=== PATIENT | male | born 1950 | race African-American/Black ===

== ENCOUNTER 2017-11-15 08:05 | Day surgery (SDC) | payer MEDICARE, MEDICAID ==
[~2017-11-15] VITALS: Ht 185.4 cm; Wt 117.5 kg
[~2017-11-15 08:05] MED LIST: AMLO10TA80 PO; BENA20TA3 PO; CLON0.2T PO; CLOP75TA33 PO; DICL75TA5 PO; FINA1TAB18 PO; FURO20TA4 PO; IBUP-2030 PO; METF10004 PO; OMEP20CA10 PO; TAMS-11 PO
[2017-11-15 09:29] LABS: HEMOGLOBIN 8.9 g/dL (14.0-18.0); MEAN CORPUSCULAR HEMOGLOBIN 28.7 pg (28.0-32.0); MEAN CORPUSCULAR VOLUME 87.1 fL (80.0-94.0); PLATELET 265 x1000/uL (130-400); RED CELL DISTRIBUTION WIDTH 16.5 % (11.6-14.6)
[2017-11-15 09:36] LABS: CHLORIDE 109 mEq/L (98-107)
[2017-11-15 09:38] LABS: INR 1.1; PARTIAL THROMBOPLASTIN TIME 24.7 sec (23.4-31.0)
[2017-11-15] MEDS ORDERED: FENTANYL CITRATE/PF 50MCG/ML 2ML VIAL ONE (11:26)
[2017-11-15] MEDS ORDERED: MIDAZOLAM HCL 2 MG/2 ML VIAL ONE (11:26)
== END 2017-11-15 14:00 | disposition home or self-care (01) ==
LOC: CCL 08:05
PROVIDERS: ATTEND Internal Medicine Clinical Cardiac Electrophysiology
DX: R42 Dizziness and giddiness (principal); Z53.9 Procedure and treatment not carried out, unspecified reason; E78.5 Hyperlipidemia, unspecified; I11.0 Hypertensive heart disease with heart failure; I25.10 Atherosclerotic heart disease of native coronary artery without angina pectoris; N40.0 Benign prostatic hyperplasia without lower urinary tract symptoms; M19.90 Unspecified osteoarthritis, unspecified site; E66.9 Obesity, unspecified; Z68.33 Body mass index [BMI] 33.0-33.9, adult; Z87.891 Personal history of nicotine dependence; Z79.899 Other long term (current) drug therapy; Z79.01 Long term (current) use of anticoagulants; Z79.1 Long term (current) use of non-steroidal anti-inflammatories (NSAID)
CPT/HCPCS: 36415; 80048; 85027; 85610; 85730; 93005; C1893; J2250; J3010; J7030

== ENCOUNTER → 2017-11-19 | Day surgery (SDC) | payer MEDICARE, MEDICAID ==
[~2017-11-19] VITALS: Ht 185.4 cm; Wt 117.5 kg
[~2017-11-19] MED LIST changes: +FENTANYL CITRATE/PF 50MCG/ML 2ML VIAL ONE; +HEPARIN 1,000 UNITS PREMIX 0 ML IV ONE; +LIDOCAINE HCL/PF 1% 10 MG/ML 5ML VIAL ONE; +MIDAZOLAM HCL 2 MG/2 ML VIAL ONE
== END | disposition home or self-care (01) ==
LOC: CCL 05:33
PROVIDERS: ATTEND Internal Medicine Clinical Cardiac Electrophysiology
DX: I45.3 Trifascicular block (principal); I25.10 Atherosclerotic heart disease of native coronary artery without angina pectoris; N40.0 Benign prostatic hyperplasia without lower urinary tract symptoms; E66.9 Obesity, unspecified; Z68.33 Body mass index [BMI] 33.0-33.9, adult; E78.5 Hyperlipidemia, unspecified; I11.0 Hypertensive heart disease with heart failure; I50.9 Heart failure, unspecified; E11.9 Type 2 diabetes mellitus without complications; D64.9 Anemia, unspecified; I69.359 Hemiplegia and hemiparesis following cerebral infarction affecting unspecified side; F32.9 Major depressive disorder, single episode, unspecified; K86.1 Other chronic pancreatitis; K74.69 Other cirrhosis of liver; M19.90 Unspecified osteoarthritis, unspecified site; Z79.01 Long term (current) use of anticoagulants; Z79.1 Long term (current) use of non-steroidal anti-inflammatories (NSAID); Z79.899 Other long term (current) drug therapy; Z87.891 Personal history of nicotine dependence; Z53.9 Procedure and treatment not carried out, unspecified reason
CPT/HCPCS: 82962; 93005; J1644; J2250; J3010; J3490

== ENCOUNTER 2018-02-08 10:07 | Inpatient (IN) | payer MEDICARE, MEDICAID ==
[~2018-02-08] VITALS: Ht 186.7 cm; Wt 115.7 kg
[~2018-02-08 10:07] MED LIST changes: +BENA20TA10 PO; -BENA20TA3 PO; -CLOP75TA33 PO; -DICL75TA5 PO; -FENTANYL CITRATE/PF 50MCG/ML 2ML VIAL ONE; -HEPARIN 1,000 UNITS PREMIX 0 ML IV ONE; -IBUP-2030 PO; -LIDOCAINE HCL/PF 1% 10 MG/ML 5ML VIAL ONE; -MIDAZOLAM HCL 2 MG/2 ML VIAL ONE
[2018-02-08 11:36] LABS: BASOPHILS % 0.5 % (0.0-2.0); EOSINOPHILS % 1.5 % (0.0-5.0); HEMATOCRIT. 33.8 % (42.0-52.0); HEMOGLOBIN. 11.1 g/dL (14.0-18.0); LYMPHOCYTES % 22.8 % (20.0-50.0); MEAN CORPUSCULAR HEMOGLOBIN 29.1 pg (28.0-32.0); MEAN PLATELET VOLUME 7.9 fl (7.4-10.4); MONOCYTES % 10.7 % (2.0-8.0); NEUTROPHILS % 64.5 % (40.0-76.0); PLATELET 265 x1000/uL (130-400); RED CELL DISTRIBUTION WIDTH 16.4 % (11.6-14.6)
[2018-02-08 11:37] LABS: CHLORIDE 107 mEq/L (98-107)
[2018-02-08 11:40] LABS: PROTHROMBIN TIME 10.4 sec (9.1-11.1)
[2018-02-08 11:42] LABS: AMMONIA 31 uMol/L (<32)
[2018-02-08 11:46] LABS: ETHANOL BLOOD < 10 mg/dL
[2018-02-08 11:49] LABS: CREATINE KINASE 69 IU/L (39-308)
[2018-02-08] MEDS ORDERED: CLOPIDOGREL 75MG TABLET PO ONE (15:00)
[2018-02-08 18:31] VITALS: BP 143/65
[2018-02-08 20:00] VITALS: BP 166/86
[2018-02-08] MEDS ORDERED: CLONIDINE 0.2MG TABLET PO PRN (23:15)
[2018-02-08] MEDS ORDERED: ACETAMINOPHEN 325MG TABLET PO PRN (23:15)
[2018-02-09] VITALS: BP 161/72
[2018-02-09 03:41] LABS: CLARITY URINE CLEAR (CLEAR); COLOR URINE YELLOW (YELLOW); KETONES URINE NEGATIVE (NEGATIVE); LEUKOCYTE ESTERASE URINE NEGATIVE (NEGATIVE); NITRITE URINE NEGATIVE (NEGATIVE); OCCULT BLOOD URINE NEGATIVE (NEGATIVE); PROTEIN URINE 1+ (NEGATIVE); SPECIFIC GRAVITY URINE 1.011 (1.005-1.030); UROBILINOGEN URINE 0.2 E.U./dL (0.2-1.0)
[2018-02-09 04:00] VITALS: BP 161/72
[2018-02-09 04:31] LABS: *AMPHETAMINES SCREEN URINE NEGATIVE (NEGATIVE); *BARBITURATES SCREEN URINE NEGATIVE (NEGATIVE); *BENZODIAZEPINES SCREEN URINE NEGATIVE (NEGATIVE); *COCAINE SCREEN URINE NEGATIVE (NEGATIVE)
[2018-02-09 04:32] LABS: CANNABINOID URINE SCREEN NEGATIVE (NEGATIVE); METHADONE URINE SCREEN NEGATIVE (NEGATIVE); OPIATES URINE SCREEN NEGATIVE (NEGATIVE); PHENCYCLIDINE URINE SCREEN NEGATIVE (NEGATIVE)
[2018-02-09 05:47] LABS: BASOPHILS % 0.3 % (0.0-2.0); EOSINOPHILS % 1.6 % (0.0-5.0); HEMATOCRIT. 36.1 % (42.0-52.0); HEMOGLOBIN. 11.7 g/dL (14.0-18.0); LYMPHOCYTES % 25.7 % (20.0-50.0); MEAN CORPUSCULAR HEMOGLOBIN 28.6 pg (28.0-32.0); MEAN CORPUSCULAR VOLUME 88.4 fL (80.0-94.0); MEAN PLATELET VOLUME 7.9 fl (7.4-10.4); MONOCYTES % 10.1 % (2.0-8.0); NEUTROPHILS % 62.3 % (40.0-76.0); PLATELET 251 x1000/uL (130-400); RED BLOOD CELL COUNT 4.09 mill/uL (4.7-6.1); RED CELL DISTRIBUTION WIDTH 16.5 % (11.6-14.6)
[2018-02-09] MEDS: OMEPRAZOLE 20MG CAPSULE EXTENDED RELEASE PO SCH (06:35)
[2018-02-09] MEDS: BLOOD SUGAR DIAGNOSTIC STRIP TEST SCH ×4 (06:38→20:49)
[2018-02-09 06:39] LABS: CHLORIDE 105 mEq/L (98-107)
[2018-02-09] MEDS: INSULIN LISPRO 100 UNITS/ML SUBCUT SCH ×4 (06:39→20:57)
[2018-02-09 06:55] LABS: PHOSPHORUS 3.4 mg/dL (2.5-4.9)
[2018-02-09 06:56] LABS: LDL CHOLESTEROL 107 mg/dL (5-100)
[2018-02-09 06:58] LABS: HDL CHOLESTEROL 36 mg/dL (40-59)
[2018-02-09] MEDS ORDERED: MEDICATION NOT ON FORMULARY EA (Metformin Hcl 1 TAB) PO SCH (07:15)
[2018-02-09 08:00] VITALS: BP 149/69
[2018-02-09] MEDS: FINASTERIDE 5MG TABLET PO SCH (08:50)
[2018-02-09] MEDS: METFORMIN HCL 500MG TABLET PO SCH ×2 (08:51→17:15)
[2018-02-09] MEDS: TAMSULOSIN HCL 0.4MG SR CAPSULE PO SCH (08:51)
[2018-02-09] MEDS: FUROSEMIDE 20MG TABLET PO SCH (08:52)
[2018-02-09] MEDS: BENAZEPRIL 10MG TABLET PO SCH (08:52)
[2018-02-09] MEDS: ENOXAPARIN 30MG/0.3ML SYR SUBCUT SCH ×2 (08:52→20:49)
[2018-02-09] MEDS: CLONIDINE 0.2MG TABLET PO SCH (08:53)
[2018-02-09] MEDS ORDERED: FINASTERIDE PO SCH (09:00)
[2018-02-09] MEDS ORDERED: MEDICATION NOT ON FORMULARY EA (Benazepril Hcl 20 MG) PO SCH (09:00)
[2018-02-09] MEDS ORDERED: MEDICATION NOT ON FORMULARY EA (Clonidine Hcl 1 TAB) PO SCH (09:00)
[2018-02-09] MEDS ORDERED: MEDICATION NOT ON FORMULARY EA (Furosemide 1 TAB) PO SCH (09:00)
[2018-02-09 10:31] LABS: VITAMIN B12 SERUM 559 pg/mL (211-911)
[2018-02-09 11:11] LABS: FOLIC ACID (FOLATE) SERUM > 20.00 ng/mL (>5.38)
[2018-02-09 12:00] VITALS: BP 143/82
[2018-02-09] MEDS: AMLODIPINE 10MG TABLET PO SCH (12:54)
[2018-02-09 14:38] LABS: T4 FREE 0.88 ng/dL (0.76-1.46)
[2018-02-09 16:00] VITALS: BP 129/62
[2018-02-09 20:00] VITALS: BP 135/65
[2018-02-10] VITALS: BP 139/71
[2018-02-10 04:00] VITALS: BP 136/68
[2018-02-10] MEDS: METFORMIN HCL 500MG TABLET PO SCH ×2 (06:39→17:30)
[2018-02-10] MEDS: OMEPRAZOLE 20MG CAPSULE EXTENDED RELEASE PO SCH (06:39)
[2018-02-10] MEDS: BLOOD SUGAR DIAGNOSTIC STRIP TEST SCH ×4 (06:40→20:36)
[2018-02-10] MEDS: INSULIN LISPRO 100 UNITS/ML SUBCUT SCH ×4 (06:40→20:36)
[2018-02-10 08:00] VITALS: BP 141/63
[2018-02-10] MEDS: CLOPIDOGREL 75MG TABLET PO SCH (09:11)
[2018-02-10] MEDS: FUROSEMIDE 20MG TABLET PO SCH (09:11)
[2018-02-10] MEDS: CLONIDINE 0.2MG TABLET PO SCH (09:12)
[2018-02-10] MEDS: FINASTERIDE 5MG TABLET PO SCH (09:12)
[2018-02-10] MEDS: TAMSULOSIN HCL 0.4MG SR CAPSULE PO SCH (09:12)
[2018-02-10] MEDS: AMLODIPINE 10MG TABLET PO SCH (09:13)
[2018-02-10] MEDS: BENAZEPRIL 10MG TABLET PO SCH (09:13)
[2018-02-10] MEDS: ENOXAPARIN 30MG/0.3ML SYR SUBCUT SCH ×2 (09:14→20:37)
[2018-02-10 12:00] VITALS: BP 133/81
[2018-02-10] MEDS ORDERED: SODIUM BICARBONATE 4% (2.4MEQ) 5ML VIAL IV ONE (13:19)
[2018-02-10] MEDS ORDERED: LIDOCAINE HCL 1% 20ML VIAL (Pyxis) INJ ONE (13:20)
[2018-02-10] MEDS ORDERED: IOHEXOL-350 100 ML BOTTLE ONE (15:18)
[2018-02-10 16:00] VITALS: BP 146/89
[2018-02-10 20:00] VITALS: BP 123/68
[2018-02-11] VITALS: BP 137/63
[2018-02-11 04:00] VITALS: BP 123/57
[2018-02-11] MEDS: OMEPRAZOLE 20MG CAPSULE EXTENDED RELEASE PO SCH (06:37)
[2018-02-11] MEDS: METFORMIN HCL 500MG TABLET PO SCH ×2 (06:37→18:21)
[2018-02-11] MEDS: INSULIN LISPRO 100 UNITS/ML SUBCUT SCH ×3 (06:38→17:15)
[2018-02-11] MEDS: BLOOD SUGAR DIAGNOSTIC STRIP TEST SCH ×3 (06:38→17:42)
[2018-02-11 08:00] VITALS: BP 164/80
[2018-02-11] MEDS: FINASTERIDE 5MG TABLET PO SCH (09:20)
[2018-02-11] MEDS: CLOPIDOGREL 75MG TABLET PO SCH (09:20)
[2018-02-11] MEDS: FUROSEMIDE 20MG TABLET PO SCH (09:21)
[2018-02-11] MEDS: AMLODIPINE 10MG TABLET PO SCH (09:22)
[2018-02-11] MEDS: TAMSULOSIN HCL 0.4MG SR CAPSULE PO SCH (09:22)
[2018-02-11] MEDS: CLONIDINE 0.2MG TABLET PO SCH (09:22)
[2018-02-11] MEDS: BENAZEPRIL 10MG TABLET PO SCH (09:23)
[2018-02-11] MEDS: ENOXAPARIN 30MG/0.3ML SYR SUBCUT SCH (09:24)
[2018-02-11] MEDS ORDERED: LACTOBACILLUS GG CAPSULE PO SCH (09:45)
[2018-02-11 12:00] VITALS: BP 152/86
[2018-02-11 16:00] VITALS: BP 154/89
[2018-02-11 18:33] VITALS: BP 154/89
[2018-02-11] MEDS ORDERED: ATORVASTATIN CALCIUM 20MG TABLET PO SCH (21:00)
== END 2018-02-11 19:06 | disposition home or self-care (01) | DRG 64 ==
LOC: ER 10:16 → 5WST 15:11 → EDBEDREQ 15:14 → ENRESERV 15:46 → 5WST 02-11 09:13
PROVIDERS: ADMIT Internal Medicine; ATTEND Internal Medicine
PROC: 02HV33Z Insertion of Infusion Device into Superior Vena Cava, Percutaneous Approach (ICD-10-PCS; principal; 2018-02-10)
PROC: B5181ZA Fluoroscopy of Superior Vena Cava using Low Osmolar Contrast, Guidance (ICD-10-PCS; 2018-02-10)
PROC: B548ZZA Ultrasonography of Superior Vena Cava, Guidance (ICD-10-PCS; 2018-02-10)
DX: I63.231 Cerebral infarction due to unspecified occlusion or stenosis of right carotid arteries (principal); K57.31 Diverticulosis of large intestine without perforation or abscess with bleeding; I69.351 Hemiplegia and hemiparesis following cerebral infarction affecting right dominant side; K86.1 Other chronic pancreatitis; I10 Essential (primary) hypertension; E66.9 Obesity, unspecified; M19.90 Unspecified osteoarthritis, unspecified site; R26.9 Unspecified abnormalities of gait and mobility; R47.1 Dysarthria and anarthria; D64.9 Anemia, unspecified; E11.9 Type 2 diabetes mellitus without complications; I25.10 Atherosclerotic heart disease of native coronary artery without angina pectoris; B19.20 Unspecified viral hepatitis C without hepatic coma; K57.90 Diverticulosis of intestine, part unspecified, without perforation or abscess without bleeding; N40.0 Benign prostatic hyperplasia without lower urinary tract symptoms; E78.00 Pure hypercholesterolemia, unspecified; Z79.02 Long term (current) use of antithrombotics/antiplatelets; Z79.82 Long term (current) use of aspirin; Z82.3 Family history of stroke; Z95.0 Presence of cardiac pacemaker; Z79.84 Long term (current) use of oral hypoglycemic drugs; Z79.899 Other long term (current) drug therapy; Z68.33 Body mass index [BMI] 33.0-33.9, adult
CPT/HCPCS: 36415; 36569; 70450; 70496; 70498; 71045; 76937; 77001; 80048; 80053; 80061; 80305; 81003; 82140; 82270; 82550; 82607; 82746; 82962; 83036; 83735; 84100; 84439; 84443; 84481; 84484; 85025; 85610; 87015; 87045; 87427; 87449; 87493; 92523; 93005; 93306; 97162; 97166; 99285; C1725; G0482; J1650; J1815; J3490; Q9967

== ENCOUNTER 2018-04-22 15:44 | Emergency (ER) | payer MEDICARE, MEDICAID ==
[~2018-04-22] VITALS: Ht 185.4 cm; Wt 113.0 kg
[~2018-04-22 15:44] MED LIST changes: +METF-416 PO; -METF10004 PO
[2018-04-22 18:13] LABS: BASOPHILS % 0.6 % (0.0-2.0); EOSINOPHILS % 2.1 % (0.0-5.0); HEMATOCRIT. 40.8 % (42.0-52.0); HEMOGLOBIN. 12.8 g/dL (14.0-18.0); LYMPHOCYTES % 32.8 % (20.0-50.0); MEAN CORPUSCULAR HEMOGLOBIN 26.3 pg (28.0-32.0); MEAN CORPUSCULAR VOLUME 83.8 fL (80.0-94.0); MEAN PLATELET VOLUME 8.1 fl (7.4-10.4); NEUTROPHILS % 54.5 % (40.0-76.0); PLATELET 242 x1000/uL (130-400); RED BLOOD CELL COUNT 4.87 mill/uL (4.7-6.1); RED CELL DISTRIBUTION WIDTH 15.7 % (11.6-14.6)
[2018-04-22 18:19] LABS: CHLORIDE 107 mEq/L (98-107)
[2018-04-22 18:29] LABS: INR 1.1; PROTHROMBIN TIME 10.9 sec (9.1-11.1)
[2018-04-22] MEDS ORDERED: METOCLOPRAMIDE HCL 10MG/2ML VIAL IV ONE (20:00)
[2018-04-22] MEDS ORDERED: DIPHENHYDRAMINE 50MG/ML VIAL IV ONE (20:00)
[2018-04-22] MEDS ORDERED: KETOROLAC 15MG/ML VIAL IV ONE (20:00)
[2018-04-22] MEDS ORDERED: SODIUM CHLORIDE 0.9% 500 ML IV ONE (20:00)
[2018-04-22 20:03] LABS: CLARITY URINE CLEAR (CLEAR); COLOR URINE YELLOW (YELLOW); KETONES URINE NEGATIVE (NEGATIVE); LEUKOCYTE ESTERASE URINE NEGATIVE (NEGATIVE); NITRITE URINE NEGATIVE (NEGATIVE); OCCULT BLOOD URINE NEGATIVE (NEGATIVE); PH URINE 6.5 (4.5-8.0); PROTEIN URINE 2+ (NEGATIVE); UROBILINOGEN URINE 0.2 E.U./dL (0.2-1.0)
[2018-04-22 20:58] VITALS: BP 148/90
== END 2018-04-22 21:01 | disposition home or self-care (01) ==
LOC: ER 15:44
DX: R51 Headache (principal); D64.9 Anemia, unspecified; Z86.73 Personal history of transient ischemic attack (TIA), and cerebral infarction without residual deficits; R03.0 Elevated blood-pressure reading, without diagnosis of hypertension; R42 Dizziness and giddiness; E11.9 Type 2 diabetes mellitus without complications; I10 Essential (primary) hypertension; I25.10 Atherosclerotic heart disease of native coronary artery without angina pectoris; Z95.0 Presence of cardiac pacemaker; Z79.899 Other long term (current) drug therapy
CPT/HCPCS: 36415; 70450; 71045; 80053; 81003; 83880; 84484; 85025; 85610; 93005; 96374; 96375; 99284; J1885; J2765; J7040

== ENCOUNTER 2018-07-03 09:43 | Inpatient (IN) | payer MEDICARE, MEDICAID ==
[~2018-07-03] VITALS: Ht 185.4 cm; Wt 111.6 kg
[2018-07-03] MEDS ORDERED: NITROGLYCERIN OINT 1GM/INCH UDPKT TD ONE (10:45)
[2018-07-03 11:18] LABS: CLARITY URINE CLEAR (CLEAR); COLOR URINE YELLOW (YELLOW); KETONES URINE NEGATIVE (NEGATIVE); LEUKOCYTE ESTERASE URINE NEGATIVE (NEGATIVE); NITRITE URINE NEGATIVE (NEGATIVE); OCCULT BLOOD URINE NEGATIVE (NEGATIVE); PH URINE 6.5 (4.5-8.0); PROTEIN URINE 3+ (NEGATIVE); SPECIFIC GRAVITY URINE 1.022 (1.005-1.030)
[2018-07-03 11:19] LABS: BASOPHILS % 0.3 % (0.0-2.0); HEMATOCRIT. 39.2 % (42.0-52.0); HEMOGLOBIN. 12.9 g/dL (14.0-18.0); LYMPHOCYTES % 24.9 % (20.0-50.0); MEAN CORPUSCULAR HEMOGLOBIN 27.4 pg (28.0-32.0); MEAN CORPUSCULAR VOLUME 83.4 fL (80.0-94.0); MONOCYTES % 11.2 % (2.0-8.0); NEUTROPHILS % 61.6 % (40.0-76.0); PLATELET 227 x1000/uL (130-400); RED CELL DISTRIBUTION WIDTH 17.9 % (11.6-14.6)
[2018-07-03 11:23] LABS: CHLORIDE 108 mEq/L (98-107)
[2018-07-03 11:24] LABS: INR 1.1; PROTHROMBIN TIME 10.6 sec (9.1-11.1)
[2018-07-04] VITALS (7 sets, daily range): BP systolic 140–174; BP diastolic 72–92
[2018-07-04] MEDS ORDERED: DEXTROSE 50% WATER 50ML SYRINGE IV PRN (01:45)
[2018-07-04] MEDS ORDERED: CLONIDINE 0.2MG TABLET PO SCH (02:00)
[2018-07-04] MEDS ORDERED: MEDICATION NOT ON FORMULARY EA (Clonidine Hcl 1 TAB) PO SCH (02:00)
[2018-07-04] MEDS ORDERED: NAPROXEN 250MG TABLET PO PRN (02:15)
[2018-07-04] MEDS: CLONIDINE 0.2MG TABLET PO SCH (03:00)
[2018-07-04] MEDS: OMEPRAZOLE 20MG CAPSULE EXTENDED RELEASE PO SCH (06:01)
[2018-07-04] MEDS: BLOOD SUGAR DIAGNOSTIC STRIP TEST SCH ×4 (06:01→21:15)
[2018-07-04] MEDS: INSULIN LISPRO 100 UNITS/ML SUBCUT SCH ×4 (06:22→21:00)
[2018-07-04] MEDS ORDERED: MEDICATION NOT ON FORMULARY EA (Metformin Hcl 1 TAB) PO SCH (07:15)
[2018-07-04] MEDS: METFORMIN HCL 500MG TABLET PO SCH ×3 (07:15→17:44)
[2018-07-04] MEDS: FINASTERIDE 5MG TABLET PO SCH (08:36)
[2018-07-04] MEDS: BENAZEPRIL 10MG TABLET PO SCH (08:36)
[2018-07-04] MEDS: TAMSULOSIN HCL 0.4MG SR CAPSULE PO SCH (08:37)
[2018-07-04] MEDS: AMLODIPINE 10MG TABLET PO SCH (08:37)
[2018-07-04] MEDS: FUROSEMIDE 20MG TABLET PO SCH (08:37)
[2018-07-04 08:54] LABS: CHLORIDE 108 mEq/L (98-107)
[2018-07-04 08:56] LABS: HEMATOCRIT. 39.4 % (42.0-52.0); HEMOGLOBIN. 12.6 g/dL (14.0-18.0); MEAN CORPUSCULAR HEMOGLOBIN 26.9 pg (28.0-32.0); MEAN CORPUSCULAR VOLUME 83.7 fL (80.0-94.0); MEAN PLATELET VOLUME 8.4 fl (7.4-10.4); PLATELET 218 x1000/uL (130-400)
[2018-07-04] MEDS ORDERED: MEDICATION NOT ON FORMULARY EA (Benazepril Hcl 20 MG) PO SCH (09:00)
[2018-07-04] MEDS ORDERED: MEDICATION NOT ON FORMULARY EA (Furosemide 1 TAB) PO SCH (09:00)
[2018-07-04] MEDS ORDERED: FINASTERIDE PO SCH (09:00)
[2018-07-04] MEDS ORDERED: MEDICATION NOT ON FORMULARY EA (Finasteride 1 TAB) PO SCH (09:00)
[2018-07-04 09:01] LABS: PHOSPHORUS 3.2 mg/dL (2.5-4.9)
[2018-07-04 11:06] LABS: PLATELET ESTIMATE NORMAL
[2018-07-05] VITALS: BP 173/87
[2018-07-05 04:00] VITALS: BP 171/85
[2018-07-05] MEDS: BLOOD SUGAR DIAGNOSTIC STRIP TEST SCH (06:10)
[2018-07-05] MEDS: OMEPRAZOLE 20MG CAPSULE EXTENDED RELEASE PO SCH (06:10)
[2018-07-05] MEDS: INSULIN LISPRO 100 UNITS/ML SUBCUT SCH (07:07)
[2018-07-05] MEDS: FUROSEMIDE 20MG TABLET PO SCH (08:59)
[2018-07-05] MEDS: TAMSULOSIN HCL 0.4MG SR CAPSULE PO SCH (09:00)
[2018-07-05] MEDS: METFORMIN HCL 500MG TABLET PO SCH (09:00)
[2018-07-05] MEDS: BENAZEPRIL 10MG TABLET PO SCH (09:01)
[2018-07-05] MEDS: AMLODIPINE 10MG TABLET PO SCH (09:01)
[2018-07-05] MEDS: FINASTERIDE 5MG TABLET PO SCH (09:01)
[2018-07-05] MEDS: CLONIDINE 0.2MG TABLET PO SCH (09:03)
[2018-07-05 11:48] VITALS: BP 159/72
[2018-07-05 12:00] VITALS: BP 159/72
== END 2018-07-05 12:15 | disposition home or self-care (01) | DRG 313 ==
LOC: ER 10:01 → 5WST 12:08 → EDBEDREQTM 12:10 → EDBEDREQ 12:10 → ENRESERV 22:18
PROVIDERS: ADMIT Internal Medicine; ATTEND Internal Medicine
DX: R07.89 Other chest pain (principal); E11.40 Type 2 diabetes mellitus with diabetic neuropathy, unspecified; E78.5 Hyperlipidemia, unspecified; G25.0 Essential tremor; K21.9 Gastro-esophageal reflux disease without esophagitis; N40.0 Benign prostatic hyperplasia without lower urinary tract symptoms; I25.10 Atherosclerotic heart disease of native coronary artery without angina pectoris; M19.90 Unspecified osteoarthritis, unspecified site; I10 Essential (primary) hypertension; G89.29 Other chronic pain; M54.5 Low back pain; E66.9 Obesity, unspecified; F32.9 Major depressive disorder, single episode, unspecified; Z79.02 Long term (current) use of antithrombotics/antiplatelets; Z87.891 Personal history of nicotine dependence; Z86.718 Personal history of other venous thrombosis and embolism; Z86.73 Personal history of transient ischemic attack (TIA), and cerebral infarction without residual deficits; Z95.0 Presence of cardiac pacemaker; Z68.32 Body mass index [BMI] 32.0-32.9, adult; Z79.4 Long term (current) use of insulin
CPT/HCPCS: 36415; 71045; 71250; 78582; 80048; 82962; 83735; 83880; 84100; 84484; 93005; 94660; 99285; A9558

== ENCOUNTER 2018-07-17 02:28 | Emergency (ER) | payer MEDICAID, MEDICARE ==
[~2018-07-17] VITALS: Ht 185.4 cm; Wt 109.0 kg
[2018-07-17] MEDS ORDERED: ACETAMINOPHEN 500MG TABLET PO SCH (03:43)
[2018-07-17 04:28] VITALS: BP 136/73
== END 2018-07-17 04:29 | disposition left against medical advice (07) ==
LOC: ER 02:28
DX: R55 Syncope and collapse (principal); A41.9 Sepsis, unspecified organism; R00.0 Tachycardia, unspecified; R50.9 Fever, unspecified; E11.9 Type 2 diabetes mellitus without complications; I10 Essential (primary) hypertension; I25.10 Atherosclerotic heart disease of native coronary artery without angina pectoris; Z86.73 Personal history of transient ischemic attack (TIA), and cerebral infarction without residual deficits; Z95.0 Presence of cardiac pacemaker; Z79.899 Other long term (current) drug therapy
CPT/HCPCS: 99283

== ENCOUNTER 2018-07-18 08:49 | Inpatient (IN) | payer MEDICARE ==
[~2018-07-18] VITALS: Ht 185.4 cm; Wt 110.7 kg
[2018-07-18 10:01] LABS: BASOPHILS % 0.3 % (0.0-2.0); EOSINOPHILS % 1.3 % (0.0-5.0); HEMATOCRIT. 38.8 % (42.0-52.0); HEMOGLOBIN. 12.6 g/dL (14.0-18.0); MEAN CORPUSCULAR HEMOGLOBIN 27.8 pg (28.0-32.0); MEAN CORPUSCULAR VOLUME 85.4 fL (80.0-94.0); MEAN PLATELET VOLUME 8.1 fl (7.4-10.4); MONOCYTES % 9.1 % (2.0-8.0); NEUTROPHILS % 77.3 % (40.0-76.0); PLATELET 210 x1000/uL (130-400); RED BLOOD CELL COUNT 4.54 mill/uL (4.7-6.1)
[2018-07-18 10:08] LABS: CHLORIDE 104 mEq/L (98-107)
[2018-07-18 10:13] LABS: ETHANOL BLOOD < 10 mg/dL
[2018-07-18 13:11] LABS: CLARITY URINE CLEAR (CLEAR); COLOR URINE YELLOW (YELLOW); KETONES URINE TRACE (NEGATIVE); LEUKOCYTE ESTERASE URINE NEGATIVE (NEGATIVE); NITRITE URINE NEGATIVE (NEGATIVE); OCCULT BLOOD URINE 1+ (NEGATIVE); PH URINE 5.5 (4.5-8.0); PROTEIN URINE 2+ (NEGATIVE); SPECIFIC GRAVITY URINE 1.023 (1.005-1.030)
[2018-07-18 13:31] LABS: *AMPHETAMINES SCREEN URINE NEGATIVE (NEGATIVE); *BARBITURATES SCREEN URINE NEGATIVE (NEGATIVE)
[2018-07-18 13:32] LABS: *BENZODIAZEPINES SCREEN URINE NEGATIVE (NEGATIVE); *COCAINE SCREEN URINE NEGATIVE (NEGATIVE); CANNABINOID URINE SCREEN NEGATIVE (NEGATIVE); METHADONE URINE SCREEN NEGATIVE (NEGATIVE); OPIATES URINE SCREEN NEGATIVE (NEGATIVE); PHENCYCLIDINE URINE SCREEN NEGATIVE (NEGATIVE)
[2018-07-18] MEDS ORDERED: DEXTROSE 50% WATER 50ML SYRINGE IV PRN (16:45)
[2018-07-18] MEDS ORDERED: BLOOD SUGAR DIAGNOSTIC STRIP TEST SCH (17:00)
[2018-07-18] MEDS ORDERED: INSULIN LISPRO (LOW DOSE) 100 UNITS/ML SUBCUT SCH (18:20)
[2018-07-18 23:00] VITALS: BP 175/81
[2018-07-19] MEDS ORDERED: CLOP75TA16 MT (00:17)
[2018-07-19] MEDS ORDERED: MEDICATION NOT ON FORMULARY EA (Benazepril Hcl 20 MG) PO SCH (01:00)
[2018-07-19] MEDS: ENOXAPARIN 120MG/0.8ML SYR SUBCUT SCH (01:46)
[2018-07-19] MEDS: BENAZEPRIL 10MG TABLET PO SCH ×2 (01:47→10:06)
[2018-07-19] MEDS: AMLODIPINE 10MG TABLET PO SCH ×2 (01:47→10:07)
[2018-07-19 04:00] VITALS: BP 162/81
[2018-07-19] MEDS: BLOOD SUGAR DIAGNOSTIC STRIP TEST SCH ×4 (06:22→21:00)
[2018-07-19] MEDS: OMEPRAZOLE 20MG CAPSULE EXTENDED RELEASE PO SCH (06:22)
[2018-07-19 06:34] LABS: HEMATOCRIT 38.2 % (42.0-52.0); HEMOGLOBIN 12.3 g/dL (14.0-18.0); MEAN CORPUSCULAR HEMOGLOBIN 27.4 pg (28.0-32.0); MEAN CORPUSCULAR VOLUME 85.2 fL (80.0-94.0); PLATELET 221 x1000/uL (130-400); RED BLOOD CELL COUNT 4.49 mill/uL (4.7-6.1); RED CELL DISTRIBUTION WIDTH 17.6 % (11.6-14.6)
[2018-07-19] MEDS: GUAIFENESIN/CODEINE 100-10MG/5ML UDC PO PRN (07:23)
[2018-07-19] MEDS: INSULIN LISPRO 100 UNITS/ML SUBCUT SCH ×4 (07:50→21:00)
[2018-07-19 08:00] VITALS: BP 143/72
[2018-07-19] MEDS ORDERED: MEDICATION NOT ON FORMULARY EA (Finasteride 1 TAB) PO SCH (09:00)
[2018-07-19] MEDS: FINASTERIDE 5MG TABLET PO SCH (10:07)
[2018-07-19] MEDS: TAMSULOSIN HCL 0.4MG SR CAPSULE PO SCH (10:07)
[2018-07-19] MEDS: CLOPIDOGREL 75MG TABLET PO SCH (19:09)
[2018-07-19 20:00] VITALS: BP 137/56
[2018-07-19] MEDS: AZITHROMYCIN 500 MG TABLET PO SCH (23:06)
[2018-07-20 00:57] VITALS: BP 138/62
[2018-07-20] MEDS: GUAIFENESIN/CODEINE 100-10MG/5ML UDC PO PRN ×2 (01:37→10:17)
[2018-07-20] MEDS: ENOXAPARIN 120MG/0.8ML SYR SUBCUT SCH (01:37)
[2018-07-20] MEDS: BLOOD SUGAR DIAGNOSTIC STRIP TEST SCH ×4 (06:49→20:55)
[2018-07-20] MEDS: OMEPRAZOLE 20MG CAPSULE EXTENDED RELEASE PO SCH (06:52)
[2018-07-20] MEDS: INSULIN LISPRO 100 UNITS/ML SUBCUT SCH ×4 (07:50→20:55)
[2018-07-20] MEDS: CLOPIDOGREL 75MG TABLET PO SCH (10:17)
[2018-07-20] MEDS: FINASTERIDE 5MG TABLET PO SCH (10:17)
[2018-07-20] MEDS: BENAZEPRIL 10MG TABLET PO SCH (10:18)
[2018-07-20] MEDS: TAMSULOSIN HCL 0.4MG SR CAPSULE PO SCH (10:18)
[2018-07-20] MEDS: AMLODIPINE 10MG TABLET PO SCH (10:19)
[2018-07-20 11:47] VITALS: BP 145/74
[2018-07-20 15:50] VITALS: BP 111/75
[2018-07-20 20:00] VITALS: BP 166/82
[2018-07-20] MEDS: ATORVASTATIN CALCIUM 20MG TABLET PO SCH (20:55)
[2018-07-20] MEDS: AZITHROMYCIN 500 MG TABLET PO SCH (20:55)
[2018-07-20] MEDS: BENZONATATE 100MG CAPSULE PO SCH (20:55)
[2018-07-20 21:00] VITALS: BP 155/69
[2018-07-20] MEDS ORDERED: ATORVASTATIN CALCIUM 10MG TABLET PO SCH (21:00)
[2018-07-20] MEDS ORDERED: CLONIDINE 0.2MG TABLET PO NR (22:30)
[2018-07-21] VITALS (7 sets, daily range): BP systolic 127–161; BP diastolic 68–88
[2018-07-21] MEDS: GUAIFENESIN/CODEINE 100-10MG/5ML UDC PO PRN ×2 (00:53→20:10)
[2018-07-21] MEDS: ENOXAPARIN 120MG/0.8ML SYR SUBCUT SCH (02:36)
[2018-07-21] MEDS: BENZONATATE 100MG CAPSULE PO SCH ×3 (03:44→20:02)
[2018-07-21 06:56] LABS: BASOPHILS % 0.5 % (0.0-2.0); EOSINOPHILS % 3.6 % (0.0-5.0); HEMATOCRIT. 36.3 % (42.0-52.0); HEMOGLOBIN. 12.2 g/dL (14.0-18.0); LYMPHOCYTES % 23.2 % (20.0-50.0); MEAN CORPUSCULAR HEMOGLOBIN 28.5 pg (28.0-32.0); MEAN CORPUSCULAR VOLUME 84.7 fL (80.0-94.0); MONOCYTES % 14.5 % (2.0-8.0); NEUTROPHILS % 58.2 % (40.0-76.0); PLATELET 230 x1000/uL (130-400); RED BLOOD CELL COUNT 4.29 mill/uL (4.7-6.1)
[2018-07-21] MEDS: OMEPRAZOLE 20MG CAPSULE EXTENDED RELEASE PO SCH (07:25)
[2018-07-21] MEDS: INSULIN LISPRO 100 UNITS/ML SUBCUT SCH ×4 (07:26→21:00)
[2018-07-21] MEDS: BLOOD SUGAR DIAGNOSTIC STRIP TEST SCH ×4 (07:26→20:02)
[2018-07-21] MEDS: CLOPIDOGREL 75MG TABLET PO SCH (08:23)
[2018-07-21] MEDS: METFORMIN HCL 500MG TABLET PO SCH ×2 (08:23→18:26)
[2018-07-21] MEDS: AMLODIPINE 10MG TABLET PO SCH (08:25)
[2018-07-21] MEDS: FINASTERIDE 5MG TABLET PO SCH (08:25)
[2018-07-21] MEDS: TAMSULOSIN HCL 0.4MG SR CAPSULE PO SCH (08:26)
[2018-07-21] MEDS: BENAZEPRIL 10MG TABLET PO SCH (08:26)
[2018-07-21] MEDS ORDERED: CLONIDINE 0.2MG TABLET PO SCH (09:00)
[2018-07-21] MEDS: AZITHROMYCIN 500 MG TABLET PO SCH (20:02)
[2018-07-21] MEDS: ATORVASTATIN CALCIUM 20MG TABLET PO SCH (20:02)
[2018-07-22] MEDS ORDERED: FAMOTIDINE 20MG TABLET PO SCH (09:00)
== END 2018-07-21 21:00 | DRG 683 ==
LOC: ER 08:49 → 6WST 10:42 → EDBEDREQ 10:44 → ENRESERV 20:49 → 5WST 07-21 04:30
PROVIDERS: ADMIT Internal Medicine; ATTEND Internal Medicine
DX: N17.0 Acute kidney failure with tubular necrosis (principal); I69.354 Hemiplegia and hemiparesis following cerebral infarction affecting left non-dominant side; R53.1 Weakness; E78.5 Hyperlipidemia, unspecified; I11.9 Hypertensive heart disease without heart failure; E66.9 Obesity, unspecified; F32.9 Major depressive disorder, single episode, unspecified; B19.20 Unspecified viral hepatitis C without hepatic coma; E11.9 Type 2 diabetes mellitus without complications; Z86.19 Personal history of other infectious and parasitic diseases; E78.00 Pure hypercholesterolemia, unspecified; G25.0 Essential tremor; G89.29 Other chronic pain; I25.10 Atherosclerotic heart disease of native coronary artery without angina pectoris; M19.90 Unspecified osteoarthritis, unspecified site; N40.0 Benign prostatic hyperplasia without lower urinary tract symptoms; Z95.0 Presence of cardiac pacemaker; Z68.32 Body mass index [BMI] 32.0-32.9, adult
CPT/HCPCS: 36415; 70551; 71045; 80048; 80061; 80305; 80320; 82962; 83735; 84100; 85027; 85651; 87070; 92523; 93005; 93970; 96372; 97116; 97162; 97166; 97530; 99285; J1650; J1815; G0480

== ENCOUNTER 2018-07-21 21:05 | Inpatient (IN) | payer MEDICARE ==
[~2018-07-21] VITALS: Ht 185.4 cm; Wt 108.9 kg
[2018-07-21 21:05] VITALS: BP 169/82
[~2018-07-21 21:05] MED LIST changes: +CLOP75TA16 MT
[2018-07-21] MEDS ORDERED: DEXTROSE 50% WATER 50ML SYRINGE IV PRN (23:00)
[2018-07-21] MEDS ORDERED: GUAIFENESIN/CODEINE 100-10MG/5ML UDC PO PRN (23:00)
[2018-07-21] MEDS ORDERED: BENAZEPRIL 10MG TABLET PO NR (23:30)
[2018-07-22] VITALS (7 sets, daily range): BP systolic 107–189; BP diastolic 72–89
[2018-07-22] MEDS: BENZONATATE 100MG CAPSULE PO SCH ×4 (00:33→21:23)
[2018-07-22] MEDS: OMEPRAZOLE 20MG CAPSULE EXTENDED RELEASE PO SCH (06:01)
[2018-07-22] MEDS: BLOOD SUGAR DIAGNOSTIC STRIP TEST SCH ×4 (06:01→21:25)
[2018-07-22] MEDS: INSULIN LISPRO 100 UNITS/ML SUBCUT SCH ×4 (06:06→21:00)
[2018-07-22] MEDS: METFORMIN HCL 500MG TABLET PO SCH ×2 (08:21→16:08)
[2018-07-22] MEDS: TAMSULOSIN HCL 0.4MG SR CAPSULE PO SCH (08:22)
[2018-07-22] MEDS: FINASTERIDE 5MG TABLET PO SCH (08:22)
[2018-07-22] MEDS: CLOPIDOGREL 75MG TABLET PO SCH (08:22)
[2018-07-22] MEDS: CLONIDINE 0.2MG TABLET PO SCH (08:23)
[2018-07-22] MEDS: AMLODIPINE 10MG TABLET PO SCH (08:23)
[2018-07-22] MEDS: ENOXAPARIN 120MG/0.8ML SYR SUBCUT SCH (08:25)
[2018-07-22] MEDS ORDERED: BENAZEPRIL 10MG TABLET PO SCH (09:00)
[2018-07-22] MEDS ORDERED: BENAZEPRIL 5MG TABLET PO SCH (13:30)
[2018-07-22] MEDS ORDERED: ACETAMINOPHEN 650MG/20.3ML UDC PO PRN (14:45)
[2018-07-22] MEDS ORDERED: HYDROCODONE/ACETAMINOPHEN 5/325MG TABLET PO PRN (14:45)
[2018-07-22] MEDS: DOCUSATE SODIUM SUGAR FREE 100MG/10ML UDC NG SCH (16:08)
[2018-07-22] MEDS: LORATADINE 10MG TABLET PO SCH (18:08)
[2018-07-22] MEDS ORDERED: GUAIFENESIN 600MG ER TABLET PO SCH ×2 (20:00)
[2018-07-22] MEDS ORDERED: AZITHROMYCIN 500 MG TABLET PO SCH (21:00)
[2018-07-22] MEDS: ATORVASTATIN CALCIUM 20MG TABLET PO SCH (21:24)
[2018-07-22] MEDS: GUAIFENESIN 600MG ER TABLET PO SCH (21:24)
[2018-07-22] MEDS: CLONIDINE 0.1MG TABLET PO PRN (21:24)
[2018-07-23] MEDS: CLONIDINE 0.1MG TABLET PO PRN (05:57)
[2018-07-23] MEDS: BENZONATATE 100MG CAPSULE PO SCH ×3 (05:57→22:03)
[2018-07-23] MEDS: BLOOD SUGAR DIAGNOSTIC STRIP TEST SCH ×4 (06:01→20:38)
[2018-07-23] MEDS: OMEPRAZOLE 20MG CAPSULE EXTENDED RELEASE PO SCH (06:01)
[2018-07-23] MEDS: INSULIN LISPRO 100 UNITS/ML SUBCUT SCH ×4 (06:01→20:42)
[2018-07-23 07:21] LABS: BASOPHILS % 0.4 % (0.0-2.0); EOSINOPHILS % 3.3 % (0.0-5.0); HEMATOCRIT. 38.6 % (42.0-52.0); HEMOGLOBIN. 12.6 g/dL (14.0-18.0); LYMPHOCYTES % 31.6 % (20.0-50.0); MEAN CORPUSCULAR HEMOGLOBIN 27.9 pg (28.0-32.0); MEAN CORPUSCULAR VOLUME 85.5 fL (80.0-94.0); NEUTROPHILS % 50.7 % (40.0-76.0); PLATELET 255 x1000/uL (130-400); RED BLOOD CELL COUNT 4.52 mill/uL (4.7-6.1); RED CELL DISTRIBUTION WIDTH 17.3 % (11.6-14.6)
[2018-07-23 07:43] LABS: CHLORIDE 109 mEq/L (98-107)
[2018-07-23 08:06] VITALS: BP 154/79
[2018-07-23] MEDS: CLOPIDOGREL 75MG TABLET PO SCH (08:23)
[2018-07-23] MEDS: ENOXAPARIN 120MG/0.8ML SYR SUBCUT SCH (08:23)
[2018-07-23] MEDS: LORATADINE 10MG TABLET PO SCH (08:24)
[2018-07-23] MEDS: BENAZEPRIL 10MG TABLET PO SCH (08:24)
[2018-07-23] MEDS: TAMSULOSIN HCL 0.4MG SR CAPSULE PO SCH (08:24)
[2018-07-23] MEDS: FINASTERIDE 5MG TABLET PO SCH (08:24)
[2018-07-23] MEDS: METFORMIN HCL 500MG TABLET PO SCH ×2 (08:25→16:59)
[2018-07-23] MEDS: AMLODIPINE 10MG TABLET PO SCH (08:25)
[2018-07-23] MEDS: DOCUSATE SODIUM SUGAR FREE 100MG/10ML UDC NG SCH ×2 (08:25→08:33)
[2018-07-23] MEDS: CLONIDINE 0.2MG TABLET PO SCH (08:25)
[2018-07-23] MEDS: GUAIFENESIN 600MG ER TABLET PO SCH ×2 (08:38→20:38)
[2018-07-23] MEDS ORDERED: LORATADINE 10MG TABLET PO SCH (09:00)
[2018-07-23 11:00] VITALS: BP 140/72
[2018-07-23 20:00] VITALS: BP 154/71
[2018-07-23] MEDS: ATORVASTATIN CALCIUM 20MG TABLET PO SCH (20:38)
[2018-07-24] MEDS: BENZONATATE 100MG CAPSULE PO SCH ×4 (06:26→21:25)
[2018-07-24] MEDS: BLOOD SUGAR DIAGNOSTIC STRIP TEST SCH ×4 (06:28→21:26)
[2018-07-24 08:30] VITALS: BP 172/91
[2018-07-24] MEDS: TAMSULOSIN HCL 0.4MG SR CAPSULE PO SCH (09:14)
[2018-07-24] MEDS: GUAIFENESIN 600MG ER TABLET PO SCH ×2 (09:14→21:26)
[2018-07-24] MEDS: CLOPIDOGREL 75MG TABLET PO SCH (09:15)
[2018-07-24] MEDS: LORATADINE 10MG TABLET PO SCH (09:15)
[2018-07-24] MEDS: CLONIDINE 0.2MG TABLET PO SCH (09:15)
[2018-07-24] MEDS: FINASTERIDE 5MG TABLET PO SCH (09:15)
[2018-07-24] MEDS: FAMOTIDINE 20MG TABLET PO SCH ×2 (09:15→21:26)
[2018-07-24] MEDS: AMLODIPINE 10MG TABLET PO SCH (09:16)
[2018-07-24] MEDS: BENAZEPRIL 10MG TABLET PO SCH ×2 (09:16→21:26)
[2018-07-24] MEDS: METFORMIN HCL 500MG TABLET PO SCH ×2 (09:16→17:09)
[2018-07-24] MEDS: INSULIN LISPRO 100 UNITS/ML SUBCUT SCH ×3 (12:40→21:00)
[2018-07-24 13:00] VITALS: BP 134/77
[2018-07-24] MEDS ORDERED: CLONIDINE HCL 0.2MG/24HR PATCH TD SCH (14:00)
[2018-07-24] MEDS: FOLIC ACID 1MG TABLET PO SCH (14:50)
[2018-07-24 15:58] VITALS: BP 141/75
[2018-07-24 16:43] VITALS: BP 139/75
[2018-07-24 20:00] VITALS: BP 139/63
[2018-07-24] MEDS: ATORVASTATIN CALCIUM 20MG TABLET PO SCH (21:25)
[2018-07-25] MEDS: INSULIN LISPRO 100 UNITS/ML SUBCUT SCH ×4 (06:08→21:00)
[2018-07-25] MEDS: BLOOD SUGAR DIAGNOSTIC STRIP TEST SCH ×4 (06:08→21:00)
[2018-07-25] MEDS: BENZONATATE 100MG CAPSULE PO SCH ×3 (06:09→20:04)
[2018-07-25 07:01] LABS: BASOPHILS % 0.5 % (0.0-2.0); EOSINOPHILS % 3.8 % (0.0-5.0); HEMATOCRIT. 38.8 % (42.0-52.0); HEMOGLOBIN. 12.6 g/dL (14.0-18.0); LYMPHOCYTES % 27.6 % (20.0-50.0); MEAN CORPUSCULAR HEMOGLOBIN 27.6 pg (28.0-32.0); MEAN CORPUSCULAR VOLUME 85.1 fL (80.0-94.0); MEAN PLATELET VOLUME 7.9 fl (7.4-10.4); MONOCYTES % 14.2 % (2.0-8.0); NEUTROPHILS % 53.9 % (40.0-76.0); PLATELET 266 x1000/uL (130-400); RED BLOOD CELL COUNT 4.56 mill/uL (4.7-6.1); RED CELL DISTRIBUTION WIDTH 16.8 % (11.6-14.6)
[2018-07-25 08:00] VITALS: BP 162/84
[2018-07-25 08:03] LABS: CHLORIDE 112 mEq/L (98-107)
[2018-07-25] MEDS: FINASTERIDE 5MG TABLET PO SCH (09:03)
[2018-07-25] MEDS: CLOPIDOGREL 75MG TABLET PO SCH (09:03)
[2018-07-25] MEDS: LORATADINE 10MG TABLET PO SCH (09:04)
[2018-07-25] MEDS: BENAZEPRIL 10MG TABLET PO SCH ×2 (09:04→20:03)
[2018-07-25] MEDS: GUAIFENESIN 600MG ER TABLET PO SCH ×2 (09:04→20:04)
[2018-07-25] MEDS: METFORMIN HCL 500MG TABLET PO SCH ×2 (09:04→16:35)
[2018-07-25] MEDS: FAMOTIDINE 20MG TABLET PO SCH ×2 (09:04→20:04)
[2018-07-25] MEDS: FOLIC ACID 1MG TABLET PO SCH (09:04)
[2018-07-25] MEDS: AMLODIPINE 10MG TABLET PO SCH (09:04)
[2018-07-25] MEDS: TAMSULOSIN HCL 0.4MG SR CAPSULE PO SCH (09:05)
[2018-07-25 10:04] VITALS: BP 142/79
[2018-07-25 20:00] VITALS: BP 169/79
[2018-07-25] MEDS: ATORVASTATIN CALCIUM 20MG TABLET PO SCH (20:04)
[2018-07-25 21:00] VITALS: BP 140/74
[2018-07-25 23:25] VITALS: BP 133/77
[2018-07-26] VITALS (7 sets, daily range): BP systolic 130–178; BP diastolic 70–90
[2018-07-26] MEDS: BENZONATATE 100MG CAPSULE PO SCH ×3 (05:12→21:23)
[2018-07-26] MEDS: BLOOD SUGAR DIAGNOSTIC STRIP TEST SCH ×4 (06:16→20:47)
[2018-07-26] MEDS: INSULIN LISPRO 100 UNITS/ML SUBCUT SCH ×4 (06:16→20:47)
[2018-07-26] MEDS: FINASTERIDE 5MG TABLET PO SCH (08:06)
[2018-07-26] MEDS: FAMOTIDINE 20MG TABLET PO SCH ×2 (08:06→20:25)
[2018-07-26] MEDS: METFORMIN HCL 500MG TABLET PO SCH ×2 (08:06→16:02)
[2018-07-26] MEDS: GUAIFENESIN 600MG ER TABLET PO SCH ×2 (08:06→20:25)
[2018-07-26] MEDS: BENAZEPRIL 10MG TABLET PO SCH ×2 (08:06→20:25)
[2018-07-26] MEDS: FOLIC ACID 1MG TABLET PO SCH (08:06)
[2018-07-26] MEDS: CLOPIDOGREL 75MG TABLET PO SCH (08:06)
[2018-07-26] MEDS: AMLODIPINE 10MG TABLET PO SCH (08:07)
[2018-07-26] MEDS: LORATADINE 10MG TABLET PO SCH (08:07)
[2018-07-26] MEDS: TAMSULOSIN HCL 0.4MG SR CAPSULE PO SCH (08:07)
[2018-07-26] MEDS: CLONIDINE 0.1MG TABLET PO PRN ×2 (09:15→20:25)
[2018-07-26] MEDS ORDERED: FUROSEMIDE 40MG TABLET PO NR (12:00)
[2018-07-26] MEDS: ATORVASTATIN CALCIUM 20MG TABLET PO SCH (20:25)
[2018-07-26] MEDS ORDERED: BENAZEPRIL 10MG TABLET PO NR (21:56)
[2018-07-27] MEDS: BENZONATATE 100MG CAPSULE PO SCH ×2 (06:05→13:09)
[2018-07-27] MEDS: INSULIN LISPRO 100 UNITS/ML SUBCUT SCH ×2 (06:05→12:23)
[2018-07-27] MEDS: BLOOD SUGAR DIAGNOSTIC STRIP TEST SCH ×2 (06:05→11:15)
[2018-07-27 08:09] VITALS: BP 158/76
[2018-07-27] MEDS: CLOPIDOGREL 75MG TABLET PO SCH (08:43)
[2018-07-27] MEDS: FOLIC ACID 1MG TABLET PO SCH (08:44)
[2018-07-27] MEDS: METFORMIN HCL 500MG TABLET PO SCH (08:44)
[2018-07-27] MEDS: LORATADINE 10MG TABLET PO SCH (08:44)
[2018-07-27] MEDS: BENAZEPRIL 10MG TABLET PO SCH (08:44)
[2018-07-27] MEDS: FINASTERIDE 5MG TABLET PO SCH (08:44)
[2018-07-27] MEDS: FAMOTIDINE 20MG TABLET PO SCH (08:44)
[2018-07-27] MEDS: AMLODIPINE 10MG TABLET PO SCH (08:45)
[2018-07-27] MEDS: TAMSULOSIN HCL 0.4MG SR CAPSULE PO SCH (08:45)
[2018-07-27] MEDS: GUAIFENESIN 600MG ER TABLET PO SCH (08:51)
[2018-07-27] MEDS: CLONIDINE 0.1MG TABLET PO PRN (11:56)
== END 2018-07-27 16:50 | disposition short-term general hospital (02) | DRG 391 ==
PROVIDERS: ADMIT Psychiatry & Neurology Neurology; ATTEND Internal Medicine
DX: R13.10 Dysphagia, unspecified (principal); I63.9 Cerebral infarction, unspecified; J98.11 Atelectasis; K86.1 Other chronic pancreatitis; K80.20 Calculus of gallbladder without cholecystitis without obstruction; I10 Essential (primary) hypertension; E11.9 Type 2 diabetes mellitus without complications; F01.50 Vascular dementia, unspecified severity, without behavioral disturbance, psychotic disturbance, mood disturbance, and anxiety; R47.1 Dysarthria and anarthria; E78.5 Hyperlipidemia, unspecified; I25.10 Atherosclerotic heart disease of native coronary artery without angina pectoris; N40.0 Benign prostatic hyperplasia without lower urinary tract symptoms; Z86.19 Personal history of other infectious and parasitic diseases; Z95.0 Presence of cardiac pacemaker; Z86.73 Personal history of transient ischemic attack (TIA), and cerebral infarction without residual deficits
CPT/HCPCS: 36415; 80048; 82962; 85651; 92523; 92610; 97110; 97112; 97116; 97162; 97166; 97530; 97535; J1650

== ENCOUNTER 2018-07-27 16:53 | Inpatient (IN) | payer MEDICARE ==
[~2018-07-27] VITALS: Ht 185.4 cm; Wt 112.6 kg
[2018-07-27 16:32] VITALS: BP 144/86
[2018-07-27 18:00] VITALS: BP 147/77
[2018-07-27 18:03] LABS: BASOPHILS % 0.6 % (0.0-2.0); EOSINOPHILS % 1.5 % (0.0-5.0); HEMATOCRIT. 39.5 % (42.0-52.0); HEMOGLOBIN. 12.9 g/dL (14.0-18.0); MEAN CORPUSCULAR VOLUME 85.8 fL (80.0-94.0); MEAN PLATELET VOLUME 7.8 fl (7.4-10.4); MONOCYTES % 10.5 % (2.0-8.0); NEUTROPHILS % 59.4 % (40.0-76.0); PLATELET 295 x1000/uL (130-400); RED CELL DISTRIBUTION WIDTH 16.7 % (11.6-14.6)
[2018-07-27 18:06] LABS: CHLORIDE 108 mEq/L (98-107)
[2018-07-27 18:11] LABS: INR 1.1; PARTIAL THROMBOPLASTIN TIME 27.6 sec (23.4-31.0); PROTHROMBIN TIME 11.5 sec (9.1-11.1)
[2018-07-27] MEDS ORDERED: ACETAMINOPHEN 650MG/20.3ML UDC PO PRN (18:30)
[2018-07-27] MEDS ORDERED: BENZONATATE 100MG CAPSULE PO PRN (18:30)
[2018-07-27] MEDS ORDERED: CLONIDINE 0.1MG TABLET PO PRN (20:41)
[2018-07-27] MEDS ORDERED: ATORVASTATIN CALCIUM 20MG TABLET PO SCH (21:00)
[2018-07-27] MEDS: INSULIN LISPRO 100 UNITS/ML SUBCUT SCH (21:00)
[2018-07-27] MEDS ORDERED: DEXTROSE 50% WATER 50ML SYRINGE IV PRN (21:00)
[2018-07-27] MEDS: BLOOD SUGAR DIAGNOSTIC STRIP TEST SCH (21:49)
[2018-07-27] MEDS: FAMOTIDINE 20MG TABLET PO SCH (21:49)
[2018-07-27 22:00] VITALS: BP 165/92
[2018-07-28] VITALS (11 sets, daily range): BP systolic 117–175; BP diastolic 62–104
[2018-07-28 06:46] LABS: BASOPHILS % 0.5 % (0.0-2.0); EOSINOPHILS % 2.2 % (0.0-5.0); HEMATOCRIT. 40.7 % (42.0-52.0); HEMOGLOBIN. 13.3 g/dL (14.0-18.0); LYMPHOCYTES % 26.8 % (20.0-50.0); MEAN CORPUSCULAR HEMOGLOBIN 27.7 pg (28.0-32.0); MEAN CORPUSCULAR VOLUME 84.9 fL (80.0-94.0); MEAN PLATELET VOLUME 7.8 fl (7.4-10.4); MONOCYTES % 9.2 % (2.0-8.0); NEUTROPHILS % 61.3 % (40.0-76.0); PLATELET 305 x1000/uL (130-400); RED BLOOD CELL COUNT 4.79 mill/uL (4.7-6.1); RED CELL DISTRIBUTION WIDTH 16.4 % (11.6-14.6)
[2018-07-28] MEDS ORDERED: LIDOCAINE HCL 1% 20ML VIAL (Pyxis) INJ ONE (07:30)
[2018-07-28 07:31] LABS: CHLORIDE 109 mEq/L (98-107)
[2018-07-28] MEDS: BLOOD SUGAR DIAGNOSTIC STRIP TEST SCH ×4 (07:40→20:36)
[2018-07-28] MEDS: INSULIN LISPRO 100 UNITS/ML SUBCUT SCH ×4 (07:47→20:40)
[2018-07-28] MEDS ORDERED: AMLODIPINE 10MG TABLET PO SCH (09:00)
[2018-07-28] MEDS ORDERED: FOLIC ACID 1MG TABLET PO SCH (09:00)
[2018-07-28] MEDS: METFORMIN HCL 500MG TABLET PO SCH ×2 (09:00→19:00)
[2018-07-28] MEDS ORDERED: CLOPIDOGREL 75MG TABLET PO SCH (09:00)
[2018-07-28] MEDS ORDERED: FINASTERIDE 5MG TABLET PO SCH (09:00)
[2018-07-28] MEDS ORDERED: TAMSULOSIN HCL 0.4MG SR CAPSULE PO SCH (09:00)
[2018-07-28] MEDS ORDERED: LORATADINE 10MG TABLET PO SCH (09:00)
[2018-07-28] MEDS: BENAZEPRIL 10MG TABLET PO SCH ×2 (09:02→20:26)
[2018-07-28] MEDS: FAMOTIDINE 20MG TABLET PO SCH ×2 (09:02→20:26)
[2018-07-28] MEDS ORDERED: ENOXAPARIN 120MG/0.8ML SYR SUBCUT SCH (20:00)
[2018-07-28] MEDS ORDERED: ASPIRIN 81MG EC TABLET PO SCH (20:30)
[2018-07-28] MEDS ORDERED: ATORVASTATIN CALCIUM 40MG TABLET PO SCH ×2 (21:00)
[2018-07-29] VITALS: BP 183/101
[2018-07-29 02:00] VITALS: BP 152/83
[2018-07-29 04:00] VITALS: BP 137/70
[2018-07-31] MEDS ORDERED: CLONIDINE HCL 0.1MG/24HR PATCH TD SCH (09:00)
== END 2018-07-29 04:20 | disposition short-term general hospital (02) | DRG 65 ==
LOC: 5EST 16:53
PROVIDERS: ADMIT Internal Medicine; ATTEND Internal Medicine
PROC: 05HY33Z Insertion of Infusion Device into Upper Vein, Percutaneous Approach (ICD-10-PCS; principal; 2018-07-28)
PROC: B54NZZA Ultrasonography of Left Upper Extremity Veins, Guidance (ICD-10-PCS; 2018-07-28)
DX: I63.512 Cerebral infarction due to unspecified occlusion or stenosis of left middle cerebral artery (principal); G81.91 Hemiplegia, unspecified affecting right dominant side; E11.9 Type 2 diabetes mellitus without complications; B19.20 Unspecified viral hepatitis C without hepatic coma; I65.22 Occlusion and stenosis of left carotid artery; E78.5 Hyperlipidemia, unspecified; I10 Essential (primary) hypertension; N40.0 Benign prostatic hyperplasia without lower urinary tract symptoms; R47.02 Dysphasia; Z95.0 Presence of cardiac pacemaker
CPT/HCPCS: 36415; 36569; 70544; 70551; 71045; 76937; 80048; 82962; C1725; C1892; J1650; J3490; J7040

== ENCOUNTER 2020-02-19 23:51 | Inpatient (IN) | payer MEDICARE, OTHER ==
[~2020-02-19] VITALS: Ht 185.4 cm; Wt 98.0 kg
[2020-02-20 01:27] LABS: CLARITY URINE CLEAR (CLEAR); COLOR URINE YELLOW (YELLOW); KETONES URINE NEGATIVE (NEGATIVE); LEUKOCYTE ESTERASE URINE NEGATIVE (NEGATIVE); NITRITE URINE NEGATIVE (NEGATIVE); OCCULT BLOOD URINE NEGATIVE (NEGATIVE); PH URINE 6.5 (4.5-8.0); PROTEIN URINE 2+ (NEGATIVE); SPECIFIC GRAVITY URINE 1.013 (1.005-1.030); UROBILINOGEN URINE 0.2 E.U./dL (0.2-1.0)
[2020-02-20 03:43] LABS: BASOPHILS % 0.4 % (0.0-2.0); EOSINOPHILS % 0.8 % (0.0-5.0); HEMATOCRIT. 31.3 % (42.0-52.0); HEMOGLOBIN. 9.8 g/dL (14.0-18.0); LYMPHOCYTES % 14.9 % (20.0-50.0); MEAN CORPUSCULAR HEMOGLOBIN 24.8 pg (28.0-32.0); MEAN CORPUSCULAR VOLUME 78.9 fL (80.0-94.0); MEAN PLATELET VOLUME 7.3 fl (7.4-10.4); MONOCYTES % 9.7 % (2.0-8.0); NEUTROPHILS % 74.2 % (40.0-76.0); PLATELET 315 x1000/uL (130-400); RED BLOOD CELL COUNT 3.96 mill/uL (4.7-6.1); RED CELL DISTRIBUTION WIDTH 18.1 % (11.6-14.6)
[2020-02-20 05:00] LABS: CHLORIDE 109 mEq/L (98-107)
[2020-02-20] MEDS ORDERED: GUAIFENESIN 200MG/10ML SUGAR FREE UDC PO PRN (10:15)
[2020-02-20] MEDS ORDERED: ONDANSETRON HCL 4MG/2ML INJ IV PRN (10:15)
[2020-02-20] MEDS ORDERED: ACETAMINOPHEN 325MG TABLET PO PRN (10:15)
[2020-02-20] MEDS ORDERED: MAGNESIUM/ALUMINUM HYDROXIDE/SIMETHICONE 30ML UDC PO PRN (10:15)
[2020-02-20] MEDS ORDERED: HYDROCODONE/ACETAMINOPHEN 5/325MG TABLET PO PRN (10:15)
[2020-02-20] MEDS ORDERED: NA PHOS,M-B/NA PHOS,DI-BA ENEMA 118ML PR PRN (10:15)
[2020-02-20] MEDS ORDERED: CLONIDINE 0.1MG TABLET PO PRN (10:15)
[2020-02-20] MEDS ORDERED: LORAZEPAM 0.5MG TABLET PO PRN (10:15)
[2020-02-20] MEDS ORDERED: DOCUSATE SODIUM 100MG CAPSULE PO PRN (10:15)
[2020-02-20] MEDS ORDERED: IPRATROPIUM/ALBUTEROL 0.5-3(2.5)MG/3ML NEB NEB PRN (10:15)
[2020-02-20] MEDS ORDERED: ACETAMINOPHEN 650MG SUPP PR PRN (10:15)
[2020-02-20] MEDS ORDERED: DIPHENHYDRAMINE 50MG/ML VIAL IV PRN (10:15)
[2020-02-20] MEDS ORDERED: ATOR-2 PO (11:13)
[2020-02-20] MEDS ORDERED: AMLO10TA80 PO (11:13)
[2020-02-20] MEDS ORDERED: ASPI-1158 PO (11:13)
[2020-02-20] MEDS ORDERED: CILO100T PO (11:13)
[2020-02-20] MEDS ORDERED: HYDR-2510 PO (11:13)
[2020-02-20] MEDS ORDERED: OMEP20TA2 PO (11:13)
[2020-02-20] MEDS ORDERED: ASPIRIN 81MG EC TABLET PO SCH (13:15)
[2020-02-20] MEDS ORDERED: AMLODIPINE 10MG TABLET PO SCH (13:15)
[2020-02-20 16:00] VITALS: BP 145/80
[2020-02-20 17:34] LABS: CREATINE KINASE 208 IU/L (39-308)
[2020-02-20 17:35] LABS: CREATINE KINASE MB FRACTION 1.3 ng/mL (0.5-3.6)
[2020-02-20 20:00] VITALS: BP 143/67
[2020-02-20] MEDS ORDERED: ATORVASTATIN CALCIUM 40MG TABLET PO SCH (21:00)
[2020-02-20] MEDS ORDERED: CILOSTAZOL 50 MG TABLET PO SCH (21:00)
[2020-02-20 21:09] LABS: *BARBITURATES SCREEN URINE NEGATIVE (NEGATIVE); *BENZODIAZEPINES SCREEN URINE NEGATIVE (NEGATIVE); *COCAINE SCREEN URINE NEGATIVE (NEGATIVE); METHADONE URINE SCREEN NEGATIVE (NEGATIVE)
[2020-02-20 21:10] LABS: *AMPHETAMINES SCREEN URINE NEGATIVE (NEGATIVE); CANNABINOID URINE SCREEN NEGATIVE (NEGATIVE); OPIATES URINE SCREEN NEGATIVE (NEGATIVE); PHENCYCLIDINE URINE SCREEN NEGATIVE (NEGATIVE)
[2020-02-21] VITALS: BP 163/88
[2020-02-21 04:00] VITALS: BP 162/88
[2020-02-21] MEDS: PANTOPRAZOLE SODIUM 40 MG/VIAL IV SCH ×2 (09:00→09:24)
[2020-02-21] MEDS ORDERED: ASPIRIN 81MG EC TABLET PO SCH (09:00)
[2020-02-21] MEDS ORDERED: CLOPIDOGREL 75MG TABLET PO SCH (09:00)
[2020-02-21] MEDS ORDERED: CLOP75TA4 MT (13:09)
[2020-02-21 16:59] LABS: BASOPHILS % 0.5 % (0.0-2.0); EOSINOPHILS % 1.9 % (0.0-5.0); HEMATOCRIT. 36.1 % (42.0-52.0); HEMOGLOBIN. 11.7 g/dL (14.0-18.0); LYMPHOCYTES % 16.2 % (20.0-50.0); MEAN CORPUSCULAR HEMOGLOBIN 25.5 pg (28.0-32.0); MEAN CORPUSCULAR VOLUME 78.5 fL (80.0-94.0); MEAN PLATELET VOLUME 7.4 fl (7.4-10.4); MONOCYTES % 11.5 % (2.0-8.0); NEUTROPHILS % 69.9 % (40.0-76.0); PLATELET 358 x1000/uL (130-400); RED CELL DISTRIBUTION WIDTH 18.5 % (11.6-14.6)
[2020-02-21] MEDS ORDERED: FOLIC ACID 1MG TABLET PO SCH (17:00)
[2020-02-21 17:08] LABS: CHLORIDE 102 mEq/L (98-107); INR 1.1; PROTHROMBIN TIME 11.3 sec (9.6-11.0)
[2020-02-21 17:14] LABS: LDL CHOLESTEROL 47 mg/dL (5-100)
[2020-02-21 17:16] LABS: HDL CHOLESTEROL 53 mg/dL (40-59)
[2020-02-21 17:19] LABS: CREATINE KINASE 252 IU/L (39-308); CREATINE KINASE MB FRACTION 1.2 ng/mL (0.5-3.6); TOTAL IRON BINDING CAPACITY 398 ug/dL (250-450)
[2020-02-21 17:20] LABS: T4 FREE 0.98 ng/dL (0.76-1.46)
== END 2020-02-21 17:35 | disposition home health service (06) | DRG 73 ==
LOC: ER 23:51 → 5WST 02-20 05:53 → ENRESERV 02-20 07:25 → 5EST 02-20 21:07
PROVIDERS: ADMIT Internal Medicine; ATTEND Internal Medicine
DX: G90.8 Other disorders of autonomic nervous system (principal); I50.33 Acute on chronic diastolic (congestive) heart failure; G93.49 Other encephalopathy; I69.351 Hemiplegia and hemiparesis following cerebral infarction affecting right dominant side; I25.10 Atherosclerotic heart disease of native coronary artery without angina pectoris; H53.8 Other visual disturbances; E78.5 Hyperlipidemia, unspecified; I12.9 Hypertensive chronic kidney disease with stage 1 through stage 4 chronic kidney disease, or unspecified chronic kidney disease; E11.22 Type 2 diabetes mellitus with diabetic chronic kidney disease; N18.9 Chronic kidney disease, unspecified; D64.9 Anemia, unspecified; Z87.442 Personal history of urinary calculi; Z79.899 Other long term (current) drug therapy; Z95.0 Presence of cardiac pacemaker; Z79.82 Long term (current) use of aspirin; I69.328 Other speech and language deficits following cerebral infarction
CPT/HCPCS: 36415; 71045; 80053; 80061; 80305; 81003; 82550; 82553; 82962; 83540; 83550; 83880; 84439; 84443; 84484; 85025; 93005; 93306; 93880; 93970; 97116; 97162; 97166; 97530; 97535; 99285; C9113

== ENCOUNTER 2021-05-25 22:53 | Inpatient (IN) | payer OTHER ==
[~2021-05-25] VITALS: Ht 152.4 cm; Wt 91.6 kg
[~2021-05-25 22:53] MED LIST changes: +ASPI-1406 PO; +ATOR-2 PO; -BENA20TA10 PO; -CLON0.2T PO; +CLOP-31 MT; -CLOP75TA16 MT; -FINA1TAB18 PO; -FURO20TA4 PO; +HYDR50TA PO; -METF-416 PO; -OMEP20CA10 PO; +OMEP20TA2 PO; -TAMS-11 PO
[2021-05-25] MEDS ORDERED: NICARDIPINE 40MG/200ML PREMIX 200 ML IV ONE (23:00)
[2021-05-26 00:21] LABS: CHLORIDE 109 mEq/L (98-107)
[2021-05-26 00:25] LABS: CLARITY URINE CLEAR (CLEAR); COLOR URINE YELLOW (YELLOW); KETONES URINE NEGATIVE (NEGATIVE); LEUKOCYTE ESTERASE URINE 2+ (NEGATIVE); NITRITE URINE NEGATIVE (NEGATIVE); OCCULT BLOOD URINE 1+ (NEGATIVE); PROTEIN URINE 2+ (NEGATIVE); SPECIFIC GRAVITY URINE 1.044 (1.005-1.030)
[2021-05-26 00:28] LABS: ETHANOL BLOOD < 10 mg/dL
[2021-05-26 00:32] LABS: HEMATOCRIT. 39.8 % (42.0-52.0); MEAN CORPUSCULAR HEMOGLOBIN 27.2 pg (28.0-32.0); MEAN CORPUSCULAR VOLUME 83.1 fL (80.0-94.0); MEAN PLATELET VOLUME 7.8 fl (7.4-10.4); PLATELET 242 x1000/uL (130-400); RED BLOOD CELL COUNT 4.79 mill/uL (4.7-6.1); RED CELL DISTRIBUTION WIDTH 17.7 % (11.6-14.6)
[2021-05-26 00:37] LABS: INR 1.1; PROTHROMBIN TIME 11.3 sec (9.6-11.0)
[2021-05-26] MEDS ORDERED: ACETAMINOPHEN 325MG TABLET PO STA (00:37)
[2021-05-26] MEDS ORDERED: CEFTRIAXONE 1 G PREMIX 50 ML IV ONE ×2 (00:45→22:00)
[2021-05-26] MEDS ORDERED: SODIUM CHLORIDE 0.9% 1,000 ML IV ONE (00:45)
[2021-05-26 00:47] LABS: *BARBITURATES SCREEN URINE NEGATIVE (NEGATIVE)
[2021-05-26 00:48] LABS: *AMPHETAMINES SCREEN URINE NEGATIVE (NEGATIVE); *BENZODIAZEPINES SCREEN URINE NEGATIVE (NEGATIVE); *COCAINE SCREEN URINE NEGATIVE (NEGATIVE); METHADONE URINE SCREEN NEGATIVE (NEGATIVE); OPIATES URINE SCREEN NEGATIVE (NEGATIVE)
[2021-05-26 00:49] LABS: CANNABINOID URINE SCREEN NEGATIVE (NEGATIVE)
[2021-05-26 00:50] LABS: PHENCYCLIDINE URINE SCREEN NEGATIVE (NEGATIVE)
[2021-05-26] MEDS ORDERED: IOHEXOL-350 100 ML BOTTLE ONE (02:43)
[2021-05-26 04:45] LABS: PLATELET ESTIMATE NORMAL
[2021-05-26] MEDS ORDERED: ACETAMINOPHEN 650MG/20.3ML UDC GT PRN (07:00)
[2021-05-26] MEDS: ENOXAPARIN 40MG/0.4ML SYR SUBCUT SCH (09:05)
[2021-05-26] MEDS: ASPIRIN 81MG EC TABLET PO SCH (09:06)
[2021-05-26 10:19] LABS: HEMATOCRIT. 39.4 % (42.0-52.0); HEMOGLOBIN. 12.7 g/dL (14.0-18.0); MEAN CORPUSCULAR HEMOGLOBIN 27.1 pg (28.0-32.0); MEAN CORPUSCULAR VOLUME 83.9 fL (80.0-94.0); MEAN PLATELET VOLUME 7.7 fl (7.4-10.4); PLATELET 194 x1000/uL (130-400); RED CELL DISTRIBUTION WIDTH 17.3 % (11.6-14.6)
[2021-05-26 10:40] LABS: CHLORIDE 108 mEq/L (98-107)
[2021-05-26 10:48] LABS: HDL CHOLESTEROL 63 mg/dL (40-59); LDL CHOLESTEROL 39 mg/dL (5-100)
[2021-05-26 12:14] LABS: PLATELET ESTIMATE NORMAL
[2021-05-27] MEDS: CEFTRIAXONE 1,000 MG in DEXTROSE 5% WATER 50 ML IV SCH (08:24)
[2021-05-27] MEDS: OMEPRAZOLE 20MG CAPSULE EXTENDED RELEASE PO SCH (08:24)
[2021-05-27] MEDS: ATORVASTATIN CALCIUM 40MG TABLET PO SCH ×2 (08:24→20:19)
[2021-05-27] MEDS: AMLODIPINE 10MG TABLET PO SCH ×2 (08:24→09:00)
[2021-05-27] MEDS: ASPIRIN 81MG EC TABLET PO SCH (08:25)
[2021-05-27] MEDS: ENOXAPARIN 40MG/0.4ML SYR SUBCUT SCH (08:25)
[2021-05-27] MEDS: CLOPIDOGREL 75MG TABLET PO SCH (08:25)
[2021-05-27] MEDS ORDERED: CEFTRIAXONE SODIUM 1 G/VIAL ONE (08:28)
[2021-05-27 10:30] VITALS: BP 158/85
[2021-05-27 11:00] VITALS: BP 158/85
[2021-05-27] MEDS: LOSARTAN POTASSIUM 25 MG TABLET PO SCH (11:43)
[2021-05-27 12:00] VITALS: BP 158/87
[2021-05-27] MEDS ORDERED: TAMS-11 MT (14:39)
[2021-05-27] MEDS ORDERED: FINA5TAB11 MT (14:39)
[2021-05-27] MEDS ORDERED: METO25TA6 MT (14:39)
[2021-05-27 16:00] VITALS: BP 118/76
[2021-05-27 20:00] VITALS: BP 156/98
[2021-05-28] VITALS: BP 164/82
[2021-05-28] MEDS: CEFTRIAXONE 1,000 MG in DEXTROSE 5% WATER 50 ML IV SCH (00:21)
[2021-05-28] MEDS: CLONIDINE 0.1MG TABLET PO PRN (00:56)
[2021-05-28 04:00] VITALS: BP 142/74
[2021-05-28] MEDS: OMEPRAZOLE 20MG CAPSULE EXTENDED RELEASE PO SCH (06:25)
[2021-05-28 08:00] VITALS: BP 161/78
[2021-05-28] MEDS: ASPIRIN 81MG EC TABLET PO SCH (09:45)
[2021-05-28] MEDS: AMLODIPINE 10MG TABLET PO SCH (09:45)
[2021-05-28] MEDS: CLOPIDOGREL 75MG TABLET PO SCH (09:45)
[2021-05-28] MEDS: LOSARTAN POTASSIUM 25 MG TABLET PO SCH (09:45)
[2021-05-28] MEDS: ENOXAPARIN 40MG/0.4ML SYR SUBCUT SCH (10:04)
[2021-05-28 12:00] VITALS: BP 135/71
[2021-05-28 16:30] VITALS: BP 144/81
[2021-05-28 20:00] VITALS: BP 118/70
[2021-05-28] MEDS: ATORVASTATIN CALCIUM 40MG TABLET PO SCH (20:34)
[2021-05-29] VITALS: BP 164/76
[2021-05-29] MEDS: CEFTRIAXONE 1,000 MG in DEXTROSE 5% WATER 50 ML IV SCH (00:09)
[2021-05-29] MEDS: CLONIDINE 0.1MG TABLET PO PRN ×2 (01:07→22:24)
[2021-05-29 04:00] VITALS: BP 105/66
[2021-05-29] MEDS: FAMOTIDINE 20MG TABLET PO SCH (06:25)
[2021-05-29 08:00] VITALS: BP 177/78
[2021-05-29] MEDS: AMLODIPINE 10MG TABLET PO SCH (09:50)
[2021-05-29] MEDS: CLOPIDOGREL 75MG TABLET PO SCH (09:50)
[2021-05-29] MEDS: LOSARTAN POTASSIUM 25 MG TABLET PO SCH (09:50)
[2021-05-29] MEDS: ASPIRIN 81MG EC TABLET PO SCH (09:50)
[2021-05-29] MEDS: ENOXAPARIN 40MG/0.4ML SYR SUBCUT SCH (09:51)
[2021-05-29 12:00] VITALS: BP 147/76
[2021-05-29 16:00] VITALS: BP 119/72
[2021-05-29 20:00] VITALS: BP 163/81
[2021-05-29] MEDS: ATORVASTATIN CALCIUM 40MG TABLET PO SCH (22:24)
[2021-05-30] VITALS: BP 165/80
[2021-05-30] MEDS: CEFTRIAXONE 1,000 MG in DEXTROSE 5% WATER 50 ML IV SCH (00:27)
[2021-05-30 04:00] VITALS: BP 158/61
[2021-05-30] MEDS: FAMOTIDINE 20MG TABLET PO SCH (05:24)
[2021-05-30 08:00] VITALS: BP 181/82
[2021-05-30] MEDS: AMLODIPINE 10MG TABLET PO SCH (09:13)
[2021-05-30] MEDS: CLOPIDOGREL 75MG TABLET PO SCH (09:13)
[2021-05-30] MEDS: ASPIRIN 81MG EC TABLET PO SCH (09:13)
[2021-05-30] MEDS: LOSARTAN POTASSIUM 25 MG TABLET PO SCH (09:13)
[2021-05-30] MEDS: ENOXAPARIN 40MG/0.4ML SYR SUBCUT SCH (09:14)
[2021-05-30 12:00] VITALS: BP 153/77
[2021-05-30 16:00] VITALS: BP 155/82
[2021-05-30 20:00] VITALS: BP 155/79
[2021-05-31] VITALS: BP 167/80
[2021-05-31] MEDS: CEFTRIAXONE 1,000 MG in DEXTROSE 5% WATER 50 ML IV SCH ×2 (00:09→08:50)
[2021-05-31] MEDS: ENOXAPARIN 30MG/0.3ML SYR SUBCUT SCH ×2 (00:09→08:48)
[2021-05-31] MEDS: ATORVASTATIN CALCIUM 40MG TABLET PO SCH (00:09)
[2021-05-31] MEDS: CLONIDINE 0.1MG TABLET PO PRN (01:23)
[2021-05-31 04:00] VITALS: BP 157/78
[2021-05-31] MEDS: FAMOTIDINE 20MG TABLET PO SCH (06:58)
[2021-05-31 08:16] VITALS: BP 150/73
[2021-05-31] MEDS: CLOPIDOGREL 75MG TABLET PO SCH (08:49)
[2021-05-31] MEDS: AMLODIPINE 10MG TABLET PO SCH (08:49)
[2021-05-31] MEDS: ASPIRIN 81MG EC TABLET PO SCH (08:49)
[2021-05-31 11:06] VITALS: BP 140/82
[2021-05-31 12:14] VITALS: BP 142/76
== END 2021-05-31 12:00 | disposition home or self-care (01) | DRG 872 ==
LOC: ER 22:53 → MICUSO 05-26 02:26 → 8WST 05-27 10:30
PROVIDERS: ADMIT Internal Medicine; ATTEND Internal Medicine
DX: A41.9 Sepsis, unspecified organism (principal); N39.0 Urinary tract infection, site not specified; I69.351 Hemiplegia and hemiparesis following cerebral infarction affecting right dominant side; R53.1 Weakness; I10 Essential (primary) hypertension; E11.9 Type 2 diabetes mellitus without complications; R79.89 Other specified abnormal findings of blood chemistry; R29.818 Other symptoms and signs involving the nervous system; R26.9 Unspecified abnormalities of gait and mobility; R47.1 Dysarthria and anarthria; B96.20 Unspecified Escherichia coli [E. coli] as the cause of diseases classified elsewhere; Z20.822 Contact with and (suspected) exposure to COVID-19; I25.10 Atherosclerotic heart disease of native coronary artery without angina pectoris; Z95.0 Presence of cardiac pacemaker; Z79.82 Long term (current) use of aspirin; Z79.899 Other long term (current) drug therapy; I69.398 Other sequelae of cerebral infarction
CPT/HCPCS: 36415; 70496; 70498; 71045; 80053; 80076; 80305; 80320; 81003; 82962; 83605; 84484; 85025; 87077; 87186; 93005; 93306; 97162; 97166; 97530; 97535; 99291; C1893; J0696; J1650; J7030; J7060; Q9967; G0480

== ENCOUNTER 2022-01-10 06:12 | Inpatient (IN) | payer MEDICARE, OTHER ==
[~2022-01-10] VITALS: Ht 185.4 cm; Wt 102.6 kg
[~2022-01-10 06:12] MED LIST changes: -ASPI-1406 PO; +FINA5TAB11 MT; +METO25TA6 MT; -OMEP20TA2 PO; +TAMS-11 MT
[2022-01-10 08:43] LABS: BASOPHILS % 0.5 % (0.0-2.0); EOSINOPHILS % 1.4 % (0.0-5.0); HEMATOCRIT. 36.2 % (42.0-52.0); HEMOGLOBIN. 11.6 g/dL (14.0-18.0); MEAN CORPUSCULAR HEMOGLOBIN 28.4 pg (28.0-32.0); MEAN CORPUSCULAR VOLUME 88.8 fL (80.0-94.0); MEAN PLATELET VOLUME 8.1 fl (7.4-10.4); MONOCYTES % 12.6 % (2.0-8.0); NEUTROPHILS % 66.5 % (40.0-76.0); PLATELET 227 x1000/uL (130-400); RED BLOOD CELL COUNT 4.08 mill/uL (4.7-6.1); RED CELL DISTRIBUTION WIDTH 17.1 % (11.6-14.6)
[2022-01-10] MEDS ORDERED: SODIUM CHLORIDE 0.9% 1,000 ML IV ONE (09:00)
[2022-01-10 09:39] LABS: CHLORIDE 113 mEq/L (98-107)
[2022-01-10 10:25] LABS: INR 1.1; PROTHROMBIN TIME 11.9 sec (9.6-11.0)
[2022-01-10 12:00] VITALS: BP 129/66
[2022-01-10 12:41] LABS: TOTAL IRON BINDING CAPACITY 235 ug/dL (250-450)
[2022-01-10] MEDS ORDERED: ONDANSETRON HCL 4MG/2ML INJ IV PRN (13:45)
[2022-01-10] MEDS ORDERED: ACETAMINOPHEN 325MG TABLET PO PRN (13:45)
[2022-01-10] MEDS ORDERED: METRONIDAZOLE 500MG TABLET PO SCH (14:00)
[2022-01-10] MEDS: DEXT 5%/0.45% NACL 1000ML 1,000 ML IV SCH ×2 (14:05→23:15)
[2022-01-10] MEDS: PANTOPRAZOLE SODIUM 40 MG/VIAL IV SCH (14:05)
[2022-01-10] MEDS: METRONIDAZOLE 500 MG PREMIX 100 ML IV SCH ×2 (15:23→23:14)
[2022-01-10 15:31] LABS: FOLIC ACID (FOLATE) SERUM 15.6 ng/mL (>5.38)
[2022-01-10 16:00] VITALS: BP 140/74
[2022-01-10] MEDS: LEVOFLOXACIN 500MG PREMIX 100 ML IV SCH (16:23)
[2022-01-10 21:40] LABS: HEMATOCRIT 28.5 % (42.0-52.0); HEMOGLOBIN 9.3 g/dL (14.0-18.0)
[2022-01-11] VITALS: BP 146/77
[2022-01-11 04:00] VITALS: BP 159/72
[2022-01-11] MEDS: METRONIDAZOLE 500 MG PREMIX 100 ML IV SCH ×3 (06:26→22:20)
[2022-01-11 08:00] VITALS: BP 142/69
[2022-01-11 09:47] LABS: HEMATOCRIT 24.6 % (42.0-52.0)
[2022-01-11] MEDS: DEXT 5%/0.45% NACL 1000ML 1,000 ML IV SCH ×2 (09:56→20:42)
[2022-01-11] MEDS: PANTOPRAZOLE SODIUM 40 MG/VIAL IV SCH (09:56)
[2022-01-11 12:00] VITALS: BP 115/85
[2022-01-11] MEDS: LEVOFLOXACIN 500MG PREMIX 100 ML IV SCH (13:02)
[2022-01-11 16:00] VITALS: BP 113/70
[2022-01-11 16:43] LABS: HEMOGLOBIN 7.8 g/dL (14.0-18.0)
[2022-01-11 20:00] VITALS: BP 150/71
[2022-01-11 23:42] LABS: HEMATOCRIT 23.1 % (42.0-52.0); HEMOGLOBIN 7.6 g/dL (14.0-18.0)
[2022-01-12] VITALS (10 sets, daily range): BP systolic 150–179; BP diastolic 72–88
[2022-01-12 03:58] LABS: BASOPHILS % 0.4 % (0.0-2.0); EOSINOPHILS % 1.5 % (0.0-5.0); HEMATOCRIT. 21.4 % (42.0-52.0); HEMOGLOBIN. 7.2 g/dL (14.0-18.0); LYMPHOCYTES % 19.2 % (20.0-50.0); MEAN CORPUSCULAR HEMOGLOBIN 28.1 pg (28.0-32.0); MEAN CORPUSCULAR VOLUME 84.3 fL (80.0-94.0); NEUTROPHILS % 67.9 % (40.0-76.0); RED BLOOD CELL COUNT 2.54 mill/uL (4.7-6.1)
[2022-01-12] MEDS: METRONIDAZOLE 500 MG PREMIX 100 ML IV SCH ×3 (05:20→23:56)
[2022-01-12] MEDS: DEXT 5%/0.45% NACL 1000ML 1,000 ML IV SCH ×2 (05:21→16:00)
[2022-01-12 06:26] LABS: CHLORIDE 116 mEq/L (98-107)
[2022-01-12] MEDS: FERROUS SULFATE 325MG TABLET PO SCH ×3 (07:10→18:15)
[2022-01-12] MEDS: PANTOPRAZOLE SODIUM 40 MG/VIAL IV SCH (08:36)
[2022-01-12] MEDS ORDERED: POTASSIUM CHLORIDE 20MEQ/PACKET PO NR (12:30)
[2022-01-12] MEDS: LEVOFLOXACIN 500MG PREMIX 100 ML IV SCH (13:53)
[2022-01-12 18:13] LABS: HEMATOCRIT 24.6 % (42.0-52.0); HEMOGLOBIN 8.2 g/dL (14.0-18.0)
[2022-01-13] VITALS: BP 139/91
[2022-01-13] MEDS: DEXT 5%/0.45% NACL 1000ML 1,000 ML IV SCH ×3 (02:07→21:15)
[2022-01-13 03:50] LABS: BASOPHILS % 0.5 % (0.0-2.0); EOSINOPHILS % 0.7 % (0.0-5.0); HEMATOCRIT. 24.2 % (42.0-52.0); HEMOGLOBIN. 8.1 g/dL (14.0-18.0); LYMPHOCYTES % 16.2 % (20.0-50.0); MEAN CORPUSCULAR HEMOGLOBIN 28.4 pg (28.0-32.0); MEAN CORPUSCULAR VOLUME 84.8 fL (80.0-94.0); MEAN PLATELET VOLUME 7.7 fl (7.4-10.4); NEUTROPHILS % 70.6 % (40.0-76.0); PLATELET 158 x1000/uL (130-400); RED BLOOD CELL COUNT 2.85 mill/uL (4.7-6.1); RED CELL DISTRIBUTION WIDTH 16.1 % (11.6-14.6)
[2022-01-13 03:52] LABS: CHLORIDE 113 mEq/L (98-107)
[2022-01-13 04:00] VITALS: BP 154/83
[2022-01-13] MEDS: METRONIDAZOLE 500 MG PREMIX 100 ML IV SCH ×3 (06:03→22:30)
[2022-01-13] MEDS: FERROUS SULFATE 325MG TABLET PO SCH ×3 (06:10→18:31)
[2022-01-13 06:50] LABS: INR 1.1; PROTHROMBIN TIME 11.9 sec (9.6-11.0)
[2022-01-13 08:00] VITALS: BP 164/74
[2022-01-13] MEDS: PANTOPRAZOLE SODIUM 40 MG/VIAL IV SCH (08:00)
[2022-01-13 16:00] VITALS: BP 150/87
[2022-01-13] MEDS: LEVOFLOXACIN 500MG PREMIX 100 ML IV SCH (18:31)
[2022-01-13 20:00] VITALS: BP 156/81
[2022-01-14] VITALS: BP 114/75
[2022-01-14 04:00] VITALS: BP 150/77
[2022-01-14] MEDS: METRONIDAZOLE 500 MG PREMIX 100 ML IV SCH ×3 (06:48→22:59)
[2022-01-14] MEDS: FERROUS SULFATE 325MG TABLET PO SCH ×3 (06:48→17:25)
[2022-01-14 08:00] VITALS: BP 166/54
[2022-01-14] MEDS: DEXT 5%/0.45% NACL 1000ML 1,000 ML IV SCH ×2 (08:52→18:00)
[2022-01-14] MEDS: PANTOPRAZOLE SODIUM 40 MG/VIAL IV SCH (08:52)
[2022-01-14] MEDS: CLONIDINE 0.1MG TABLET PO PRN (08:53)
[2022-01-14 12:00] VITALS: BP 148/64
[2022-01-14] MEDS: LEVOFLOXACIN 500MG PREMIX 100 ML IV SCH (13:11)
[2022-01-14 16:00] VITALS: BP 150/62
[2022-01-14 20:00] VITALS: BP 150/73
[2022-01-15] VITALS: BP 157/79
[2022-01-15] MEDS: DEXT 5%/0.45% NACL 1000ML 1,000 ML IV SCH ×2 (03:44→14:00)
[2022-01-15 04:00] VITALS: BP 171/72
[2022-01-15] MEDS: CLONIDINE 0.1MG TABLET PO PRN (04:26)
[2022-01-15] MEDS: FERROUS SULFATE 325MG TABLET PO SCH ×2 (06:14→12:59)
[2022-01-15] MEDS: METRONIDAZOLE 500 MG PREMIX 100 ML IV SCH (06:14)
[2022-01-15 08:00] VITALS: BP 152/59
[2022-01-15] MEDS: PANTOPRAZOLE SODIUM 40 MG/VIAL IV SCH (09:00)
[2022-01-15 12:00] VITALS: BP 144/81
[2022-01-15] MEDS ORDERED: METR-167 MT (13:36)
[2022-01-15] MEDS ORDERED: LEVO500T90 MT (13:36)
[2022-01-15] MEDS ORDERED: PROT40 MT (13:36)
[2022-01-15] MEDS: LEVOFLOXACIN 500MG PREMIX 100 ML IV SCH (14:00)
[2022-01-15 14:40] VITALS: BP 144/81
== END 2022-01-15 15:45 | disposition home or self-care (01) | DRG 378 ==
LOC: ER 06:12 → 7EST 09:24 → EDBEDREQ 09:28 → ENRESERV 10:57
PROVIDERS: ADMIT Internal Medicine; ATTEND Internal Medicine
PROC: 30233N1 Transfusion of Nonautologous Red Blood Cells into Peripheral Vein, Percutaneous Approach (ICD-10-PCS; principal; 2022-01-12)
DX: K57.31 Diverticulosis of large intestine without perforation or abscess with bleeding (principal); D62 Acute posthemorrhagic anemia; I13.0 Hypertensive heart and chronic kidney disease with heart failure and stage 1 through stage 4 chronic kidney disease, or unspecified chronic kidney disease; I69.351 Hemiplegia and hemiparesis following cerebral infarction affecting right dominant side; K86.1 Other chronic pancreatitis; E78.5 Hyperlipidemia, unspecified; K29.71 Gastritis, unspecified, with bleeding; I25.10 Atherosclerotic heart disease of native coronary artery without angina pectoris; K80.20 Calculus of gallbladder without cholecystitis without obstruction; I48.91 Unspecified atrial fibrillation; I50.9 Heart failure, unspecified; J44.9 Chronic obstructive pulmonary disease, unspecified; N40.0 Benign prostatic hyperplasia without lower urinary tract symptoms; E11.22 Type 2 diabetes mellitus with diabetic chronic kidney disease; N18.9 Chronic kidney disease, unspecified; E87.6 Hypokalemia; K44.9 Diaphragmatic hernia without obstruction or gangrene; D63.1 Anemia in chronic kidney disease; K52.9 Noninfective gastroenteritis and colitis, unspecified; K64.8 Other hemorrhoids; I49.5 Sick sinus syndrome; I69.322 Dysarthria following cerebral infarction; Z87.19 Personal history of other diseases of the digestive system; Z95.810 Presence of automatic (implantable) cardiac defibrillator; Z79.899 Other long term (current) drug therapy
CPT/HCPCS: 36415; 71045; 74176; 76700; 80048; 80053; 82607; 82728; 82746; 83540; 83550; 85014; 85018; 85025; 86850; 86900; 86920; 93005; 93970; 99291; C9113; J1956; J3490; J7030; P9016

== ENCOUNTER 2022-06-08 15:12 | Inpatient (IN) | payer MEDICARE, OTHER ==
[~2022-06-08] VITALS: Ht 185.4 cm; Wt 99.3 kg
[~2022-06-08 15:12] MED LIST changes: -CLOP-31 MT; -HYDR50TA PO; +LEVO-65 MT; +METR-167 MT; +PROT40 MT
[2022-06-08 16:48] LABS: HEMATOCRIT. 28.2 % (42.0-52.0); HEMOGLOBIN. 8.7 g/dL (14.0-18.0); MEAN CORPUSCULAR HEMOGLOBIN 21.8 pg (28.0-32.0); MEAN CORPUSCULAR VOLUME 71.2 fL (80.0-94.0); MEAN PLATELET VOLUME 8.5 fl (7.4-10.4); PLATELET 260 x1000/uL (130-400); RED BLOOD CELL COUNT 3.97 mill/uL (4.7-6.1); RED CELL DISTRIBUTION WIDTH 23.3 % (11.6-14.6)
[2022-06-08 16:57] LABS: INR 1.1; PROTHROMBIN TIME 11.4 sec (9.6-11.0)
[2022-06-08 16:58] LABS: CHLORIDE 112 mEq/L (98-107)
[2022-06-08 17:24] LABS: PLATELET ESTIMATE NORMAL
[2022-06-08] MEDS ORDERED: PANTOPRAZOLE SODIUM 40 MG/VIAL IV ONE (18:30)
[2022-06-08] MEDS ORDERED: GUAIFENESIN 200MG/10ML SUGAR FREE UDC PO PRN (19:00)
[2022-06-08] MEDS ORDERED: MAGNESIUM/ALUMINUM HYDROXIDE/SIMETHICONE 30ML UDC PO PRN (19:00)
[2022-06-08] MEDS ORDERED: IPRATROPIUM/ALBUTEROL 0.5-3(2.5)MG/3ML NEB NEB PRN (19:00)
[2022-06-08] MEDS ORDERED: DOCUSATE SODIUM 100MG CAPSULE PO PRN (19:00)
[2022-06-08] MEDS ORDERED: ONDANSETRON HCL 4MG/2ML INJ IV PRN (19:00)
[2022-06-08] MEDS ORDERED: ACETAMINOPHEN 325MG TABLET PO PRN ×2 (19:00)
[2022-06-08] MEDS ORDERED: NITROGLYCERIN 0.4MG TABLET SL SL PRN (19:00)
[2022-06-08] MEDS ORDERED: ZOLPIDEM TARTRATE 5MG TABLET PO PRN (19:00)
[2022-06-08] MEDS ORDERED: ALBUTEROL (0.083%) 2.5MG/3ML NEB HHN PRN (19:15)
[2022-06-08] MEDS ORDERED: IPRATROPIUM BROMIDE (0.02%) 0.5MG/2.5ML NEB HHN PRN (19:15)
[2022-06-08 19:55] LABS: ETHANOL BLOOD < 10 mg/dL; HDL CHOLESTEROL 49 mg/dL (40-59); LDL CHOLESTEROL 48 mg/dL (5-100); T4 FREE 0.84 ng/dL (0.76-1.46); TOTAL IRON BINDING CAPACITY 351 ug/dL (250-450)
[2022-06-08 20:00] VITALS: BP 131/75
[2022-06-08 20:09] LABS: FOLIC ACID (FOLATE) SERUM 16.2 ng/mL (>5.38)
[2022-06-08 22:00] VITALS: BP 181/84
[2022-06-08] MEDS ORDERED: CLOP75TA33 PO (22:49)
[2022-06-08] MEDS ORDERED: LOSA50TA41 PO (22:49)
[2022-06-08] MEDS ORDERED: FURO20TA4 PO (22:49)
[2022-06-09] VITALS (8 sets, daily range): BP systolic 134–204; BP diastolic 75–89
[2022-06-09] MEDS: CLONIDINE 0.1MG TABLET PO PRN ×2 (01:44→21:36)
[2022-06-09 07:23] LABS: BASOPHILS % 0.5 % (0.0-2.0); EOSINOPHILS % 2.9 % (0.0-5.0); HEMATOCRIT. 27.9 % (42.0-52.0); HEMOGLOBIN. 8.7 g/dL (14.0-18.0); INR 1.1; LYMPHOCYTES % 27.3 % (20.0-50.0); MEAN CORPUSCULAR HEMOGLOBIN 21.8 pg (28.0-32.0); MEAN CORPUSCULAR VOLUME 70.3 fL (80.0-94.0); MEAN PLATELET VOLUME 7.5 fl (7.4-10.4); MONOCYTES % 14.4 % (2.0-8.0); NEUTROPHILS % 54.9 % (40.0-76.0); PLATELET 276 x1000/uL (130-400); PROTHROMBIN TIME 11.5 sec (9.6-11.0); RED BLOOD CELL COUNT 3.96 mill/uL (4.7-6.1); RED CELL DISTRIBUTION WIDTH 22.5 % (11.6-14.6)
[2022-06-09 08:02] LABS: HEPATITIS B SURFACE ANTIGEN NEGATIVE
[2022-06-09 08:48] LABS: CHLORIDE 112 mEq/L (98-107)
[2022-06-09 09:15] LABS: PHOSPHORUS 2.6 mg/dL (2.5-4.9)
[2022-06-09] MEDS: PANTOPRAZOLE SODIUM 40 MG/VIAL IV SCH (09:39)
[2022-06-09] MEDS: IRON SUCROSE COMPLEX 100 MG/5 ML ML IV SCH (18:04)
[2022-06-10] VITALS: BP 176/89
[2022-06-10 04:00] VITALS: BP 176/83
[2022-06-10] MEDS: CLONIDINE 0.1MG TABLET PO PRN (06:42)
[2022-06-10 07:38] LABS: INR 1.1; PROTHROMBIN TIME 11.4 sec (9.6-11.0)
[2022-06-10 07:48] LABS: CHLORIDE 108 mEq/L (98-107)
[2022-06-10 08:00] VITALS: BP 153/71
[2022-06-10 08:09] LABS: BASOPHILS % 0.3 % (0.0-2.0); EOSINOPHILS % 1.9 % (0.0-5.0); HEMATOCRIT. 29.2 % (42.0-52.0); LYMPHOCYTES % 15.2 % (20.0-50.0); MEAN CORPUSCULAR HEMOGLOBIN 22.1 pg (28.0-32.0); MEAN PLATELET VOLUME 8.6 fl (7.4-10.4); MONOCYTES % 10.4 % (2.0-8.0); NEUTROPHILS % 72.2 % (40.0-76.0); PLATELET 243 x1000/uL (130-400); RED BLOOD CELL COUNT 4.05 mill/uL (4.7-6.1); RED CELL DISTRIBUTION WIDTH 22.4 % (11.6-14.6)
[2022-06-10] MEDS: PANTOPRAZOLE SODIUM 40 MG/VIAL IV SCH (09:21)
[2022-06-10 12:00] VITALS: BP 159/79
[2022-06-10] MEDS: IRON SUCROSE COMPLEX 100 MG/5 ML ML IV SCH (13:30)
[2022-06-10 16:00] VITALS: BP 164/74
[2022-06-10 20:00] VITALS: BP 157/78
[2022-06-11] VITALS: BP 155/69
[2022-06-11 04:00] VITALS: BP 165/62
[2022-06-11] MEDS: CLONIDINE 0.1MG TABLET PO PRN ×2 (04:44→10:06)
[2022-06-11 07:43] LABS: BASOPHILS % 1.2 % (0.0-2.0); EOSINOPHILS % 2.2 % (0.0-5.0); HEMATOCRIT. 30.1 % (42.0-52.0); HEMOGLOBIN. 9.4 g/dL (14.0-18.0); LYMPHOCYTES % 24.8 % (20.0-50.0); MEAN CORPUSCULAR HEMOGLOBIN 22.3 pg (28.0-32.0); MEAN CORPUSCULAR VOLUME 71.2 fL (80.0-94.0); MEAN PLATELET VOLUME 8.7 fl (7.4-10.4); MONOCYTES % 11.5 % (2.0-8.0); NEUTROPHILS % 60.3 % (40.0-76.0); PLATELET 247 x1000/uL (130-400); RED BLOOD CELL COUNT 4.22 mill/uL (4.7-6.1); RED CELL DISTRIBUTION WIDTH 22.4 % (11.6-14.6)
[2022-06-11 07:54] LABS: CHLORIDE 105 mEq/L (98-107)
[2022-06-11 08:00] VITALS: BP 143/120
[2022-06-11] MEDS: PANTOPRAZOLE SODIUM 40 MG/VIAL IV SCH (09:55)
[2022-06-11] MEDS ORDERED: SENN-257 MT (10:23)
[2022-06-11] MEDS ORDERED: FE300LUD MT (10:23)
[2022-06-11 12:00] VITALS: BP 140/70
[2022-06-11] MEDS: IRON SUCROSE COMPLEX 100 MG/5 ML ML IV SCH (15:10)
== END 2022-06-11 15:35 | disposition home health service (06) | DRG 377 ==
LOC: ER 15:12 → 7EST 18:02 → SUPCPDRO 18:58
PROVIDERS: ADMIT Internal Medicine; ATTEND Internal Medicine
DX: K57.31 Diverticulosis of large intestine without perforation or abscess with bleeding (principal); N17.0 Acute kidney failure with tubular necrosis; K86.1 Other chronic pancreatitis; D62 Acute posthemorrhagic anemia; E44.0 Moderate protein-calorie malnutrition; D50.9 Iron deficiency anemia, unspecified; N40.0 Benign prostatic hyperplasia without lower urinary tract symptoms; I10 Essential (primary) hypertension; R73.9 Hyperglycemia, unspecified; R73.03 Prediabetes; Z86.73 Personal history of transient ischemic attack (TIA), and cerebral infarction without residual deficits; Z68.28 Body mass index [BMI] 28.0-28.9, adult; Z95.0 Presence of cardiac pacemaker; Z87.891 Personal history of nicotine dependence
CPT/HCPCS: 36415; 71045; 80048; 80053; 80061; 80320; 82607; 82728; 82746; 83036; 83540; 83550; 83735; 84100; 84439; 84443; 85025; 85044; 86803; 86850; 86900; 87340; 93005; 93970; 99291; C9113; G0480

== ENCOUNTER 2022-09-01 10:39 | Emergency (ER) | payer OTHER ==
[~2022-09-01] VITALS: Ht 185.4 cm; Wt 96.0 kg
[~2022-09-01 10:39] MED LIST changes: +CLOP75TA33 PO; +FE300LUD MT; +FURO20TA4 PO; -LEVO-65 MT; +LOSA50TA41 PO; -METR-167 MT; +SENN-257 MT
[2022-09-01 10:53] VITALS: BP 145/80
[2022-09-01] MEDS ORDERED: CEFP200T13 MT (14:37)
[2022-09-01] MEDS ORDERED: AZIT250T12 MT (14:37)
== END 2022-09-01 14:50 | disposition home or self-care (01) ==
LOC: ER 10:39
DX: J18.9 Pneumonia, unspecified organism (principal); I10 Essential (primary) hypertension; Z20.822 Contact with and (suspected) exposure to COVID-19; Z86.73 Personal history of transient ischemic attack (TIA), and cerebral infarction without residual deficits
CPT/HCPCS: 71045; 73521; 87426; 87804; 99284; C9803

== ENCOUNTER 2022-11-10 08:58 | Emergency (ER) | payer OTHER ==
[~2022-11-10] VITALS: Ht 182.9 cm; Wt 109.0 kg
[~2022-11-10 08:58] MED LIST changes: +AZIT250T12 MT; +CEFP200T13 MT
[2022-11-10] MEDS ORDERED: SODIUM CHLORIDE 0.9% 1,000 ML IV ONE (09:15)
[2022-11-10 10:46] LABS: HEMATOCRIT. 35.8 % (42.0-52.0); HEMOGLOBIN. 11.3 g/dL (14.0-18.0); MEAN CORPUSCULAR HEMOGLOBIN 25.6 pg (28.0-32.0); MEAN PLATELET VOLUME 7.7 fl (7.4-10.4); PLATELET 244 x1000/uL (130-400); RED BLOOD CELL COUNT 4.43 mill/uL (4.7-6.1); RED CELL DISTRIBUTION WIDTH 20.9 % (11.6-14.6)
[2022-11-10 10:54] LABS: CHLORIDE 111 mEq/L (98-107)
[2022-11-10 11:08] LABS: INR 1.1; PARTIAL THROMBOPLASTIN TIME 26.2 sec (23.4-31.0); PROTHROMBIN TIME 11.3 sec (9.6-11.0)
[2022-11-10 11:38] LABS: PLATELET ESTIMATE NORMAL
[2022-11-10] MEDS ORDERED: IOHEXOL-350 100 ML BOTTLE ONE (12:38)
[2022-11-10] MEDS ORDERED: METHYLPREDNISOLONE SOD SUCC 125MG/2ML (ACT-O-VIAL) IV ONE (13:00)
[2022-11-10] MEDS ORDERED: AZIT250T12 PO (13:28)
[2022-11-10] MEDS ORDERED: ALBUTEROL (0.083%) 2.5MG/3ML NEB HHN ONE (13:30)
[2022-11-10] MEDS ORDERED: CEFTRIAXONE 1GM PREMIX 50 ML IV ONE (13:30)
[2022-11-10] MEDS ORDERED: AZITHROMYCIN 500MG/250ML 250 ML IV ONE (13:30)
[2022-11-10 14:43] VITALS: PULSE 86; RESP 18; O2SAT 95
[2022-11-10 15:40] VITALS: BP 148/79; PULSE 82; RESP 17; TEMP 98
== END 2022-11-10 15:44 | disposition home or self-care (01) ==
LOC: ER 09:10
DX: J45.909 Unspecified asthma, uncomplicated (principal); I10 Essential (primary) hypertension; Z20.822 Contact with and (suspected) exposure to COVID-19; Z79.899 Other long term (current) drug therapy; Z86.73 Personal history of transient ischemic attack (TIA), and cerebral infarction without residual deficits
CPT/HCPCS: 99285; 96365; 71275; 71045; 96361; 96375; 87426; 80053; 83880; 83605; 85025; 85610; 85730; 87040; 84484; 87804 ×2; 36415; 94640; 93005; 96368; Q9967; J0456; J0696; J2930; J7030; C9803

== ENCOUNTER 2023-05-14 12:22 | Emergency (ER) | payer OTHER ==
[~2023-05-14] VITALS: Ht 182.9 cm; Wt 106.0 kg
[~2023-05-14 12:22] MED LIST changes: +AZIT250T12 PO
[2023-05-14 12:35] VITALS: BP 134/64; PULSE 90; RESP 18; TEMP 98.6; O2SAT 99
[2023-05-14 14:08] LABS: ALANINE AMINOTRANSFERASE 22 IU/L (10-49); ALBUMIN 3.6 g/dL (3.2-4.8); ASPARTATE AMINOTRANSFERASE 24 IU/L (<34); BILIRUBIN TOTAL 0.4 mg/dL (0.1-1.0); CALCIUM 8.7 mg/dL (8.7-10.4); CARBON DIOXIDE 28 mEq/L (21-32); CHLORIDE 109 mEq/L (98-107); CREATININE 1.3 mg/dL (0.6-1.3); GLUCOSE 106 mg/dL (70-105); POTASSIUM 3.8 mEq/L (3.5-5.1); PROTEIN TOTAL 7.2 g/dL (6.0-8.3); SODIUM 142 mEq/L (136-145); UREA NITROGEN BLOOD 15 mg/dL (9-23)
[2023-05-14 14:20] LABS: BASOPHILS % 0.3 % (0.0-2.0); EOSINOPHILS % 0.7 % (0.0-5.0); HEMATOCRIT. 38.3 % (42.0-52.0); HEMOGLOBIN. 11.9 g/dL (14.0-18.0); LYMPHOCYTES % 14.4 % (20.0-50.0); MEAN CORPUSCULAR HEMOGLOBIN 26.9 pg (28.0-32.0); MEAN CORPUSCULAR HGB CONC 31.1 g/dL (31.0-37.0); MEAN CORPUSCULAR VOLUME 86.6 fL (80.0-94.0); MEAN PLATELET VOLUME 8.5 fl (7.4-10.4); MONOCYTES % 11.4 % (2.0-8.0); NEUTROPHILS % 73.2 % (40.0-76.0); PLATELET 213 x1000/uL (130-400); RED BLOOD CELL COUNT 4.43 mill/uL (4.7-6.1); RED CELL DISTRIBUTION WIDTH 17.5 % (11.6-14.6); WHITE BLOOD COUNT 3.6 x1000/uL (4.5-11.0)
[2023-05-14 16:00] LABS: CLARITY URINE CLEAR (CLEAR); COLOR URINE YELLOW (YELLOW); GLUCOSE URINE NEGATIVE (NEGATIVE); KETONES URINE NEGATIVE (NEGATIVE); LEUKOCYTE ESTERASE URINE NEGATIVE (NEGATIVE); NITRITE URINE NEGATIVE (NEGATIVE); OCCULT BLOOD URINE NEGATIVE (NEGATIVE); PROTEIN URINE 2+ (NEGATIVE); SPECIFIC GRAVITY URINE 1.021 (1.005-1.030)
[2023-05-14 16:35] LABS: BACTERIA URINE TRACE; RBC URINE NONE SEEN /hpf (0-2); SQUAMOUS EPITHELIAL CELL URINE FEW /lpf (RARE/1+); WBC URINE 0-2 /hpf (0-2)
[2023-05-14] MEDS ORDERED: FINA5TAB11 MT (16:37)
== END 2023-05-14 17:49 | disposition home or self-care (01) ==
LOC: ER 12:26
DX: R33.9 Retention of urine, unspecified (principal); I25.10 Atherosclerotic heart disease of native coronary artery without angina pectoris; I10 Essential (primary) hypertension; Z86.73 Personal history of transient ischemic attack (TIA), and cerebral infarction without residual deficits; Z95.0 Presence of cardiac pacemaker; Z87.19 Personal history of other diseases of the digestive system; Z87.440 Personal history of urinary (tract) infections; Z79.899 Other long term (current) drug therapy
CPT/HCPCS: 36415; 80053; 81003; 85025; 99283

== ENCOUNTER 2024-02-18 20:06 | Emergency (ER) | payer BC, MEDICARE ==
[~2024-02-18] VITALS: Ht 182.9 cm; Wt 115.0 kg
[~2024-02-18 20:06] MED LIST changes: -CLOP75TA33 PO; -SENN-257 MT; +SENN-362 MT
[2024-02-18 20:11] VITALS: O2SAT 97
[2024-02-18] MEDS: SODIUM CHLORIDE 0.9% 1,000 ML IV ONE (23:54)
[2024-02-18 23:57] LABS: CLARITY URINE CLEAR (CLEAR); COLOR URINE YELLOW (YELLOW); GLUCOSE URINE NEGATIVE (NEGATIVE); KETONES URINE NEGATIVE (NEGATIVE); LEUKOCYTE ESTERASE URINE NEGATIVE (NEGATIVE); NITRITE URINE NEGATIVE (NEGATIVE); OCCULT BLOOD URINE NEGATIVE (NEGATIVE); PROTEIN URINE 1+ (NEGATIVE); SPECIFIC GRAVITY URINE 1.009 (1.005-1.030)
[2024-02-19 00:10] LABS: *AMPHETAMINES SCREEN URINE NEGATIVE (NEGATIVE); *BARBITURATES SCREEN URINE NEGATIVE (NEGATIVE); *BENZODIAZEPINES SCREEN URINE NEGATIVE (NEGATIVE); *COCAINE SCREEN URINE NEGATIVE (NEGATIVE); CANNABINOID URINE SCREEN NEGATIVE (NEGATIVE); ECSTASY MDMA SCREEN URINE NEGATIVE (NEGATIVE); METHADONE URINE SCREEN NEGATIVE (NEGATIVE); OPIATES URINE SCREEN NEGATIVE (NEGATIVE); PHENCYCLIDINE URINE SCREEN NEGATIVE (NEGATIVE)
[2024-02-19 00:13] LABS: BACTERIA URINE TRACE; RBC URINE NONE SEEN /hpf (0-2); SQUAMOUS EPITHELIAL CELL URINE RARE /lpf (RARE/1+); WBC URINE 0-2 /hpf (0-2)
[2024-02-19 02:40] LABS: BASOPHILS % 1.2 % (0.0-2.0); DIFFERENTIAL COMMENT 0; EOSINOPHILS % 3.6 % (0.0-5.0); HEMATOCRIT. 33.6 % (42.0-52.0); HEMOGLOBIN. 10.2 g/dL (14.0-18.0); LYMPHOCYTES % 23.8 % (20.0-50.0); MEAN CORPUSCULAR HEMOGLOBIN 22.2 pg (28.0-32.0); MEAN CORPUSCULAR HGB CONC 30.3 g/dL (31.0-37.0); MEAN CORPUSCULAR VOLUME 73.2 fL (80.0-94.0); MEAN PLATELET VOLUME 8.8 fl (7.4-10.4); MONOCYTES % 13.5 % (2.0-8.0); NEUTROPHILS % 57.9 % (40.0-76.0); PLATELET 253 x1000/uL (130-400); RED BLOOD CELL COUNT 4.59 mill/uL (4.7-6.1); RED CELL DISTRIBUTION WIDTH 20.2 % (11.6-14.6); WHITE BLOOD COUNT 4.1 x1000/uL (4.5-11.0)
[2024-02-19 02:47] LABS: CHLORIDE 109 mEq/L (98-107); POTASSIUM 3.4 mEq/L (3.5-5.1); SODIUM 141 mEq/L (136-145)
[2024-02-19 02:48] LABS: CALCIUM 8.9 mg/dL (8.7-10.4); CARBON DIOXIDE 26 mEq/L (21-32)
[2024-02-19 02:53] LABS: GLUCOSE 121 mg/dL (70-105); TROPONIN I HIGH SENSITIVITY 11 ng/L (3.0-53); UREA NITROGEN BLOOD 10 mg/dL (9-23)
[2024-02-19 02:55] LABS: ALANINE AMINOTRANSFERASE 16 IU/L (10-49); ALBUMIN 3.9 g/dL (3.2-4.8); ASPARTATE AMINOTRANSFERASE 26 IU/L (<34); BILIRUBIN TOTAL 0.4 mg/dL (0.1-1.0); CREATINE KINASE 95 IU/L (46-171); PROTEIN TOTAL 7.3 g/dL (6.0-8.3)
[2024-02-19 03:08] LABS: CREATININE 1.5 mg/dL (0.6-1.3); ETHANOL BLOOD < 10 mg/dL (<10)
[2024-02-19 05:00] VITALS: TEMP 36.22512
[2024-02-19 10:22] VITALS: BP 180/88; PULSE 61; RESP 14; O2SAT 99
== END 2024-02-19 10:23 | disposition home or self-care (01) ==
LOC: ER 20:06
DX: M79.10 Myalgia, unspecified site (principal); E78.00 Pure hypercholesterolemia, unspecified; I10 Essential (primary) hypertension; Z95.0 Presence of cardiac pacemaker; Z86.73 Personal history of transient ischemic attack (TIA), and cerebral infarction without residual deficits; Z87.440 Personal history of urinary (tract) infections; Z79.899 Other long term (current) drug therapy
CPT/HCPCS: 80305; 81003; 36415; 71045; 93005; 96360; 96361; 99285; 80053; 80320; 82550; 85025; 84484; J7030; G0480

== ENCOUNTER 2024-05-29 14:34 | Inpatient (IN) | payer BC ==
[~2024-05-29] VITALS: Ht 188 cm; Wt 103.0 kg
[~2024-05-29 14:34] MED LIST changes: -AZIT250T12 MT; -AZIT250T12 PO; -CEFP200T13 MT; +HYDR50TA39 PO
[2024-05-29] MEDS ORDERED: HYDRALAZINE 20MG/ML VIAL IV PRN (20:30)
[2024-05-29] MEDS ORDERED: IPRATROPIUM/ALBUTEROL 0.5-3(2.5)MG/3ML NEB NEB PRN (20:30)
[2024-05-29] MEDS ORDERED: ACETAMINOPHEN 325MG TABLET PO PRN (20:30)
[2024-05-29] MEDS ORDERED: ZOLPIDEM TARTRATE 5MG TABLET PO PRN (20:30)
[2024-05-29] MEDS ORDERED: ONDANSETRON HCL 4MG/2ML INJ IV PRN (20:30)
[2024-05-29] MEDS ORDERED: CLONIDINE 0.1MG TABLET PO PRN (20:30)
[2024-05-29 20:45] LABS: BASOPHILS % 0.7 % (0.0-2.0); DIFFERENTIAL COMMENT 0; EOSINOPHILS % 0.3 % (0.0-5.0); HEMATOCRIT. 26.7 % (42.0-52.0); LYMPHOCYTES % 17.2 % (20.0-50.0); MEAN CORPUSCULAR HEMOGLOBIN 23.4 pg (28.0-32.0); MEAN CORPUSCULAR HGB CONC 29.9 g/dL (31.0-37.0); MEAN CORPUSCULAR VOLUME 78.3 fL (80.0-94.0); MEAN PLATELET VOLUME 8.5 fl (7.4-10.4); MONOCYTES % 10.1 % (2.0-8.0); NEUTROPHILS % 71.7 % (40.0-76.0); PLATELET 120 x1000/uL (130-400); RED BLOOD CELL COUNT 3.41 mill/uL (4.7-6.1); RED CELL DISTRIBUTION WIDTH 19.7 % (11.6-14.6); WHITE BLOOD COUNT 5.7 x1000/uL (4.5-11.0)
[2024-05-29] MEDS ORDERED: NALOXONE HCL 0.4MG/ML VIAL IV PRN (20:45)
[2024-05-29 20:59] LABS: CARBON DIOXIDE 19 mEq/L (21-32); CHLORIDE 111 mEq/L (98-107); POTASSIUM 4.2 mEq/L (3.5-5.1); SODIUM 140 mEq/L (136-145)
[2024-05-29 21:00] LABS: CALCIUM 8.8 mg/dL (8.7-10.4)
[2024-05-29 21:04] LABS: CREATININE 1.5 mg/dL (0.6-1.3)
[2024-05-29 21:05] LABS: GLUCOSE 121 mg/dL (70-105); UREA NITROGEN BLOOD 13 mg/dL (9-23)
[2024-05-29 21:06] LABS: ALANINE AMINOTRANSFERASE 27 IU/L (10-49); ASPARTATE AMINOTRANSFERASE 34 IU/L (<34)
[2024-05-29 21:07] LABS: ALBUMIN 3.5 g/dL (3.2-4.8); BILIRUBIN DIRECT 0.1 mg/dL (<=3.0); BILIRUBIN TOTAL 0.3 mg/dL (0.1-1.0); PROTEIN TOTAL 6.9 g/dL (6.0-8.3)
[2024-05-29 21:30] LABS: INR 1.1; PROTHROMBIN TIME 11.9 sec (9.6-11.0)
[2024-05-29 22:30] LABS: ETHANOL BLOOD < 10 mg/dL (<10)
[2024-05-29] MEDS: PANTOPRAZOLE SODIUM 40 MG/VIAL IV SCH (23:20)
[2024-05-29] MEDS: SODIUM CHLORIDE 0.9% 1,000 ML IV SCH (23:20)
[2024-05-29] MEDS: PIPERACILLIN/TAZO 3.375G/100ML IV NR (23:20)
[2024-05-30] VITALS: BP 149/68; PULSE 77; RESP 15; TEMP 36.44736; TEMP 36.4736; O2SAT 100
[2024-05-30 04:00] VITALS: BP 137/59; PULSE 89; RESP 18; TEMP 36.16956; O2SAT 98
[2024-05-30 04:36] LABS: BASOPHILS % 0.3 % (0.0-2.0); HEMOGLOBIN. 8.2 g/dL (14.0-18.0); MEAN CORPUSCULAR HEMOGLOBIN 23.2 pg (28.0-32.0); MEAN CORPUSCULAR VOLUME 77.1 fL (80.0-94.0); WHITE BLOOD COUNT 5.6 x1000/uL (4.5-11.0)
[2024-05-30 04:57] LABS: POTASSIUM 3.8 mEq/L (3.5-5.1)
[2024-05-30 04:58] LABS: CALCIUM 8.7 mg/dL (8.7-10.4)
[2024-05-30 05:03] LABS: CREATININE 1.5 mg/dL (0.6-1.3)
[2024-05-30 05:10] LABS: DIFFERENTIAL COMMENT 0; EOSINOPHILS % 0.8 % (0.0-5.0); HEMATOCRIT. 27.2 % (42.0-52.0); LYMPHOCYTES % 20.8 % (20.0-50.0); MEAN PLATELET VOLUME 8.3 fl (7.4-10.4); MONOCYTES % 14.8 % (2.0-8.0); NEUTROPHILS % 63.3 % (40.0-76.0); PLATELET 217 x1000/uL (130-400); RED BLOOD CELL COUNT 3.53 mill/uL (4.7-6.1); RED CELL DISTRIBUTION WIDTH 19.6 % (11.6-14.6)
[2024-05-30 05:34] LABS: CLARITY URINE CLEAR (CLEAR); COLOR URINE YELLOW (YELLOW); GLUCOSE URINE NEGATIVE (NEGATIVE); KETONES URINE NEGATIVE (NEGATIVE); LEUKOCYTE ESTERASE URINE NEGATIVE (NEGATIVE); NITRITE URINE NEGATIVE (NEGATIVE); OCCULT BLOOD URINE NEGATIVE (NEGATIVE); PH URINE 5.5 (4.5-8.0); PROTEIN URINE 1+ (NEGATIVE); SPECIFIC GRAVITY URINE 1.031 (1.005-1.030); UROBILINOGEN URINE 0.2 E.U./dL (0.2-1.0)
[2024-05-30 05:42] LABS: *AMPHETAMINES SCREEN URINE NEGATIVE (NEGATIVE); *BARBITURATES SCREEN URINE NEGATIVE (NEGATIVE); *BENZODIAZEPINES SCREEN URINE NEGATIVE (NEGATIVE); *COCAINE SCREEN URINE NEGATIVE (NEGATIVE); METHADONE URINE SCREEN NEGATIVE (NEGATIVE)
[2024-05-30 05:43] LABS: CANNABINOID URINE SCREEN NEGATIVE (NEGATIVE); ECSTASY MDMA SCREEN URINE NEGATIVE (NEGATIVE); OPIATES URINE SCREEN NEGATIVE (NEGATIVE); PHENCYCLIDINE URINE SCREEN NEGATIVE (NEGATIVE)
[2024-05-30] MEDS: PIPERACILLIN/TAZO 3.375G/100ML 100 ML IV SCH ×2 (06:00→12:00)
[2024-05-30] MEDS: HYDRALAZINE HCL 50MG TABLET PO SCH (07:19)
[2024-05-30 07:26] LABS: RBC URINE NONE SEEN /hpf (0-2); SQUAMOUS EPITHELIAL CELL URINE RARE /lpf (RARE/1+); WBC URINE 0-2 /hpf (0-2)
[2024-05-30 07:27] LABS: BACTERIA URINE RARE; YEAST URINE NONE SEEN
[2024-05-30 08:00] VITALS: BP 143/60; PULSE 81; RESP 20; TEMP 36.83628; O2SAT 100
[2024-05-30] MEDS: LIDOCAINE HCL 1% 10 MG/ML 10ML VIAL ONE (08:28)
[2024-05-30] MEDS: FERROUS SULFATE 325MG TABLET PO SCH (10:27)
[2024-05-30] MEDS: METOPROLOL TARTRATE 25MG TABLET PO SCH (10:28)
[2024-05-30] MEDS: FINASTERIDE 5MG TABLET PO SCH (10:28)
[2024-05-30] MEDS: LOSARTAN 50 MG TABLET PO SCH (10:28)
[2024-05-30] MEDS: TAMSULOSIN HCL 0.4MG SR CAPSULE PO SCH (10:30)
[2024-05-30] MEDS: AMLODIPINE 10MG TABLET PO SCH (10:31)
[2024-05-30] MEDS: FUROSEMIDE 20MG TABLET PO SCH (10:32)
[2024-05-30 12:00] VITALS: BP 140/88; PULSE 76; RESP 13; TEMP 36.78072; O2SAT 99
[2024-05-30 16:00] VITALS: BP 132/64; PULSE 77; RESP 12; TEMP 36.72516; O2SAT 100
[2024-05-30 20:00] VITALS: BP 127/54; PULSE 86; RESP 15; TEMP 36.83628; O2SAT 100
[2024-05-30] MEDS: ATORVASTATIN CALCIUM 40MG TABLET PO SCH (22:57)
[2024-05-30 23:43] LABS: HEMOGLOBIN 6.1 g/dL (14.0-18.0)
[2024-05-30 23:44] LABS: HEMATOCRIT 20.1 % (42.0-52.0)
[2024-05-31] VITALS (10 sets, daily range): BP systolic 108–168; BP diastolic 46–71; PULSE 63–90; RESP 10–17; TEMP 36.44736–37.16964; O2SAT 99–100
[2024-05-31 08:06] LABS: BASOPHILS % 0.3 % (0.0-2.0); DIFFERENTIAL COMMENT 0; EOSINOPHILS % 1.5 % (0.0-5.0); HEMATOCRIT. 22.4 % (42.0-52.0); HEMOGLOBIN. 7.1 g/dL (14.0-18.0); LYMPHOCYTES % 10.9 % (20.0-50.0); MEAN CORPUSCULAR HEMOGLOBIN 24.3 pg (28.0-32.0); MEAN CORPUSCULAR HGB CONC 31.8 g/dL (31.0-37.0); MEAN CORPUSCULAR VOLUME 76.5 fL (80.0-94.0); MEAN PLATELET VOLUME 8.4 fl (7.4-10.4); MONOCYTES % 12.2 % (2.0-8.0); NEUTROPHILS % 75.1 % (40.0-76.0); PLATELET 167 x1000/uL (130-400); RED BLOOD CELL COUNT 2.93 mill/uL (4.7-6.1); RED CELL DISTRIBUTION WIDTH 18.5 % (11.6-14.6); WHITE BLOOD COUNT 7.1 x1000/uL (4.5-11.0)
[2024-05-31 08:07] LABS: POTASSIUM 3.9 mEq/L (3.5-5.1)
[2024-05-31 08:09] LABS: CALCIUM 8.4 mg/dL (8.7-10.4)
[2024-05-31 08:14] LABS: CREATININE 1.5 mg/dL (0.6-1.3)
[2024-05-31] MEDS: FERROUS SULFATE 325MG TABLET PO SCH (08:37)
[2024-05-31] MEDS: HYDROCODONE/ACETAMINOPHEN 5/325MG TABLET PO PRN (10:18)
[2024-05-31 13:05] LABS: HEMATOCRIT 22.4 % (42.0-52.0)
[2024-05-31 22:25] LABS: HEMATOCRIT 22.1 % (42.0-52.0)
[2024-06-01] VITALS (14 sets, daily range): BP systolic 128–161; BP diastolic 50–101; PULSE 68–100; RESP 7–22; TEMP 36.6696–37.503; O2SAT 98–100
[2024-06-01 02:48] LABS: HEMATOCRIT 22.8 % (42.0-52.0); HEMOGLOBIN 7.2 g/dL (14.0-18.0)
[2024-06-01] MEDS: PIPERACILLIN/TAZO 3.375G/50ML IV SCH (05:43)
[2024-06-01 08:32] LABS: CARBON DIOXIDE 22 mEq/L (21-32); CHLORIDE 113 mEq/L (98-107); POTASSIUM 3.6 mEq/L (3.5-5.1); SODIUM 144 mEq/L (136-145)
[2024-06-01 08:33] LABS: CALCIUM 8.1 mg/dL (8.7-10.4)
[2024-06-01 08:37] LABS: CREATININE 1.3 mg/dL (0.6-1.3); GLUCOSE 91 mg/dL (70-105); IRON 30 ug/dL (65-175)
[2024-06-01 08:38] LABS: UREA NITROGEN BLOOD 7 mg/dL (9-23)
[2024-06-01 08:39] LABS: ALANINE AMINOTRANSFERASE 22 IU/L (10-49); ALBUMIN 3.2 g/dL (3.2-4.8); ASPARTATE AMINOTRANSFERASE 34 IU/L (<34)
[2024-06-01 08:40] LABS: BILIRUBIN DIRECT 0.2 mg/dL (<=3.0); BILIRUBIN TOTAL 0.4 mg/dL (0.1-1.0); PROTEIN TOTAL 5.8 g/dL (6.0-8.3); TOTAL IRON BINDING CAPACITY 238 ug/dl (250-425)
[2024-06-01 08:45] LABS: BASOPHILS % 0.1 % (0.0-2.0); DIFFERENTIAL COMMENT 0; EOSINOPHILS % 1.5 % (0.0-5.0); FERRITIN 19 ng/mL (22-322); FOLIC ACID (FOLATE) SERUM 7.48 ng/mL (>5.38); HEMATOCRIT. 21.9 % (42.0-52.0); LYMPHOCYTES % 13.5 % (20.0-50.0); MEAN CORPUSCULAR HEMOGLOBIN 24.5 pg (28.0-32.0); MEAN CORPUSCULAR HGB CONC 32.2 g/dL (31.0-37.0); MEAN CORPUSCULAR VOLUME 76.1 fL (80.0-94.0); MEAN PLATELET VOLUME 8.6 fl (7.4-10.4); MONOCYTES % 12.7 % (2.0-8.0); NEUTROPHILS % 72.2 % (40.0-76.0); PLATELET 169 x1000/uL (130-400); RED BLOOD CELL COUNT 2.87 mill/uL (4.7-6.1); RED CELL DISTRIBUTION WIDTH 18.3 % (11.6-14.6)
[2024-06-01] MEDS ORDERED: NON FORMULARY MED XX SCH (10:15)
[2024-06-01] MEDS: IRON SUCROSE COMPLEX 100 MG/5 ML ML IV SCH (12:43)
[2024-06-01 13:06] LABS: VITAMIN B12 SERUM 885 pg/mL (211-911)
[2024-06-01 20:11] LABS: HEMATOCRIT 27.7 % (42.0-52.0); HEMOGLOBIN 8.9 g/dL (14.0-18.0)
[2024-06-01 20:21] LABS: INR 1.1; PROTHROMBIN TIME 11.9 sec (9.6-11.0)
[2024-06-02] VITALS (7 sets, daily range): BP systolic 134–175; BP diastolic 63–83; PULSE 62–88; RESP 12–19; TEMP 36.44736–37.7808; O2SAT 97–100
[2024-06-02 07:38] LABS: CHLORIDE 108 mEq/L (98-107); POTASSIUM 3.4 mEq/L (3.5-5.1); SODIUM 141 mEq/L (136-145)
[2024-06-02 07:39] LABS: CALCIUM 8.6 mg/dL (8.7-10.4); CARBON DIOXIDE 25 mEq/L (21-32)
[2024-06-02 07:44] LABS: CREATININE 1.4 mg/dL (0.6-1.3); GLUCOSE 99 mg/dL (70-105); UREA NITROGEN BLOOD 9 mg/dL (9-23)
[2024-06-02 08:00] LABS: BASOPHILS % 0.4 % (0.0-2.0); DIFFERENTIAL COMMENT 0; EOSINOPHILS % 1.5 % (0.0-5.0); HEMATOCRIT. 27.1 % (42.0-52.0); HEMOGLOBIN. 8.9 g/dL (14.0-18.0); LYMPHOCYTES % 10.2 % (20.0-50.0); MEAN CORPUSCULAR HEMOGLOBIN 25.9 pg (28.0-32.0); MEAN CORPUSCULAR HGB CONC 32.8 g/dL (31.0-37.0); MEAN CORPUSCULAR VOLUME 78.9 fL (80.0-94.0); MONOCYTES % 13.9 % (2.0-8.0); PLATELET 126 x1000/uL (130-400); RED BLOOD CELL COUNT 3.44 mill/uL (4.7-6.1)
[2024-06-02] MEDS: POTASSIUM CHLORIDE 20MEQ TABLET SR PO NR (11:45)
[2024-06-02] MEDS: MAGNESIUM 1 G PREMIX 100 ML IV NR (11:45)
== END 2024-06-02 19:20 | disposition home or self-care (01) | DRG 378 ==
LOC: ER 14:45 → 3WST 18:40 → EDBEDREQ 18:42
PROVIDERS: ADMIT Internal Medicine; ATTEND Internal Medicine
PROC: 05HY33Z Insertion of Infusion Device into Upper Vein, Percutaneous Approach (ICD-10-PCS; principal; 2024-05-30)
PROC: B54NZZA Ultrasonography of Left Upper Extremity Veins, Guidance (ICD-10-PCS; 2024-05-30)
PROC: 30233N1 Transfusion of Nonautologous Red Blood Cells into Peripheral Vein, Percutaneous Approach (ICD-10-PCS; 2024-05-31)
DX: K57.31 Diverticulosis of large intestine without perforation or abscess with bleeding (principal); K86.1 Other chronic pancreatitis; N17.9 Acute kidney failure, unspecified; K64.8 Other hemorrhoids; N40.0 Benign prostatic hyperplasia without lower urinary tract symptoms; K80.20 Calculus of gallbladder without cholecystitis without obstruction; D64.9 Anemia, unspecified; I10 Essential (primary) hypertension; E78.00 Pure hypercholesterolemia, unspecified; I48.91 Unspecified atrial fibrillation; R33.8 Other retention of urine; Z79.82 Long term (current) use of aspirin; Z79.899 Other long term (current) drug therapy; Z86.73 Personal history of transient ischemic attack (TIA), and cerebral infarction without residual deficits; Z95.0 Presence of cardiac pacemaker
CPT/HCPCS: 36415; 36573; 74176; 80048; 80076; 80305; 80320; 81003; 82607; 82728; 82746; 83540; 83550; 83735; 85014; 85018; 85025; 85044; 85049; 85384; 86850; 86900; 86920; 87340; 93970; 99285; A4606; A4663; A6261; C1725; J2003; J2470; J2543; J3475; P9016; G0480

== ENCOUNTER 2024-08-23 08:22 | Emergency (ER) | payer BC, MEDICARE ==
[~2024-08-23] VITALS: Ht 180.3 cm; Wt 102.0 kg
[2024-08-23 08:29] VITALS: O2SAT 98
[2024-08-23] MEDS: ACETAMINOPHEN 325MG TABLET PO ONE (09:07)
[2024-08-23 11:32] VITALS: BP 134/73; PULSE 64; RESP 15; TEMP 36.6; O2SAT 100
== END 2024-08-23 12:17 | disposition home or self-care (01) ==
LOC: ER 08:22
DX: M54.50 Low back pain, unspecified (principal); I12.9 Hypertensive chronic kidney disease with stage 1 through stage 4 chronic kidney disease, or unspecified chronic kidney disease; N18.9 Chronic kidney disease, unspecified; Z79.899 Other long term (current) drug therapy; Z86.73 Personal history of transient ischemic attack (TIA), and cerebral infarction without residual deficits
CPT/HCPCS: 99284

== ENCOUNTER 2024-11-02 15:24 | Emergency (ER) | payer MEDICAID, OTHER ==
[~2024-11-02] VITALS: Ht 177.8 cm; Wt 77.0 kg
[~2024-11-02 15:24] MED LIST changes: -ATOR-2 PO; +ATOR40TA70 PO; +CILO100T3 PO; +DUTA1CPM4 PO; -FE300LUD MT; -FINA5TAB11 MT; -FURO20TA4 PO; -HYDR50TA39 PO; +LOSA100T33 PO; -LOSA50TA41 PO; -METO25TA6 MT; +METO25TA6 PO; +OMEP40CA20 PO; -PROT40 MT; -SENN-362 MT; -TAMS-11 MT
[2024-11-02 15:28] VITALS: O2SAT 98
[2024-11-02 16:09] LABS: BASOPHILS % 0.6 % (0.0-2.0); EOSINOPHILS % 2.1 % (0.0-5.0); HEMATOCRIT. 35.2 % (42.0-52.0); LYMPHOCYTES % 17.1 % (20.0-50.0); MEAN CORPUSCULAR HEMOGLOBIN 25.8 pg (28.0-32.0); MEAN CORPUSCULAR HGB CONC 31.4 g/dL (31.0-37.0); MEAN CORPUSCULAR VOLUME 82.1 fL (80.0-94.0); MEAN PLATELET VOLUME 7.8 fl (7.4-10.4); MONOCYTES % 13.4 % (2.0-8.0); NEUTROPHILS % 66.8 % (40.0-76.0); PLATELET 231 x1000/uL (130-400); RED BLOOD CELL COUNT 4.29 mill/uL (4.7-6.1); RED CELL DISTRIBUTION WIDTH 22.4 % (11.6-14.6); WHITE BLOOD COUNT 5.1 x1000/uL (4.5-11.0)
[2024-11-02 16:12] LABS: ADD RBC MORPHOLOGY YES; DIFFERENTIAL COMMENT 1
[2024-11-02 16:24] LABS: INR 1.1; PROTHROMBIN TIME 11.9 sec (9.6-11.0)
[2024-11-02 16:33] LABS: CHLORIDE 107 mEq/L (98-107); SODIUM 137 mEq/L (136-145)
[2024-11-02 16:34] LABS: CARBON DIOXIDE 23 mEq/L (21-32)
[2024-11-02 16:35] LABS: ANISOCYTOSIS 2+; PLATELET ESTIMATE NORMAL
[2024-11-02 16:39] LABS: CREATININE 1.8 mg/dL (0.6-1.3); GLUCOSE 108 mg/dL (70-105); UREA NITROGEN BLOOD 21 mg/dL (9-23)
[2024-11-02 16:40] LABS: TROPONIN I HIGH SENSITIVITY 7 ng/L (3.0-53)
[2024-11-02] MEDS: ONDANSETRON 4MG ODT PO STA (18:40)
[2024-11-02] MEDS: MAGNESIUM/ALUMINUM HYDROXIDE/SIMETHICONE 30ML UDC PO STA (18:40)
[2024-11-02] MEDS: DICYCLOMINE HCL 10MG CAPSULE PO SCH (18:40)
[2024-11-02 18:42] VITALS: BP 137/63; PULSE 64; RESP 17; TEMP 36.4; O2SAT 100
[2024-11-02] MEDS: DICYCLOMINE 10 MG/5 ML ORAL SYR PO STA (18:46)
== END 2024-11-02 19:18 | disposition home or self-care (01) ==
LOC: ER 15:24
DX: R06.6 Hiccough (principal); E11.9 Type 2 diabetes mellitus without complications; I10 Essential (primary) hypertension; N28.9 Disorder of kidney and ureter, unspecified; R06.02 Shortness of breath; Z79.899 Other long term (current) drug therapy; Z98.890 Other specified postprocedural states; Z86.73 Personal history of transient ischemic attack (TIA), and cerebral infarction without residual deficits
CPT/HCPCS: 99285; 71045; 80048; 83880; 85025; 85610; 84484; 36415; 93005; Q0162

== ENCOUNTER 2024-12-21 06:44 | Emergency (ER) | payer MEDICAID, OTHER ==
[~2024-12-21] VITALS: Ht 188 cm; Wt 100.0 kg
[2024-12-21 06:45] VITALS: O2SAT 96
[2024-12-21 07:59] LABS: BASOPHILS % 0.3 % (0.0-2.0); EOSINOPHILS % 1.1 % (0.0-5.0); HEMATOCRIT. 35.8 % (42.0-52.0); HEMOGLOBIN. 11.2 g/dL (14.0-18.0); LYMPHOCYTES % 10.4 % (20.0-50.0); MEAN PLATELET VOLUME 7.7 fl (7.4-10.4); MONOCYTES % 11.4 % (2.0-8.0); NEUTROPHILS % 76.8 % (40.0-76.0); PLATELET 219 x1000/uL (130-400); RED BLOOD CELL COUNT 4.32 mill/uL (4.7-6.1); RED CELL DISTRIBUTION WIDTH 18.3 % (11.6-14.6)
[2024-12-21 08:10] LABS: CREATININE 1.6 mg/dL (0.6-1.3); UREA NITROGEN BLOOD 18 mg/dL (9-23)
[2024-12-21 08:11] LABS: ETHANOL BLOOD < 10 mg/dL (<10)
[2024-12-21 08:12] LABS: ASPARTATE AMINOTRANSFERASE 27 IU/L (<34); BILIRUBIN DIRECT 0.2 mg/dL (<=3.0); BILIRUBIN TOTAL 0.5 mg/dL (0.1-1.0); PROTEIN TOTAL 6.3 g/dL (6.0-8.3); TROPONIN I HIGH SENSITIVITY 10 ng/L (3.0-53)
[2024-12-21] MEDS: FAMOTIDINE 20MG/2ML VIAL IV ONE (08:44)
[2024-12-21] MEDS: ONDANSETRON HCL 4MG/2ML INJ IV ONE ×2 (08:44→09:54)
[2024-12-21] MEDS: SODIUM CHLORIDE 0.9% 1,000 ML IV ONE (08:44)
[2024-12-21 09:45] VITALS: BP 143/77; PULSE 79; RESP 15; TEMP 36.9; O2SAT 99
== END 2024-12-21 12:00 | disposition home or self-care (01) ==
LOC: ER 07:12
DX: R10.9 Unspecified abdominal pain (principal); I10 Essential (primary) hypertension; Z95.0 Presence of cardiac pacemaker
CPT/HCPCS: 80076; 80048; 80320; 83690; 85025; 84484; 36415; 96361; 96374; 96375; 99284; J1308; J2405; J7030; G0480

== ENCOUNTER 2025-03-20 17:48 | Inpatient (IN) | payer MEDICAID, MEDICARE ==
[~2025-03-20] VITALS: Ht 185.4 cm; Wt 83.0 kg
[~2025-03-20 17:48] MED LIST changes: -LOSA100T33 PO; -METO25TA6 PO
[2025-03-20 18:55] LABS: HEMATOCRIT. 38.8 % (42.0-52.0); HEMOGLOBIN. 12.3 g/dL (14.0-18.0); MEAN PLATELET VOLUME 8.1 fl (7.4-10.4); PLATELET 247 x1000/uL (130-400); RED BLOOD CELL COUNT 4.60 mill/uL (4.7-6.1); RED CELL DISTRIBUTION WIDTH 19.5 % (11.6-14.6)
[2025-03-20 19:04] LABS: INR 1.1
[2025-03-20 19:09] LABS: CREATININE 1.3 mg/dL (0.6-1.3); UREA NITROGEN BLOOD 6 mg/dL (9-23)
[2025-03-20 19:10] LABS: TROPONIN I HIGH SENSITIVITY 7 ng/L (3.0-53)
[2025-03-20 19:11] LABS: ASPARTATE AMINOTRANSFERASE 26 IU/L (<34); BILIRUBIN DIRECT 0.2 mg/dL (<=3.0); BILIRUBIN TOTAL 0.6 mg/dL (0.1-1.0); PROTEIN TOTAL 6.8 g/dL (6.0-8.3)
[2025-03-20 20:30] LABS: BAND% 2.0 % (1.0-6.0); LYMPHOCYTES % MANUAL 5.0 % (20.0-50.0); MONOCYTES % MANUAL 7.0 % (2.0-8.0); NEUTROPHILS % MANUAL 86.0 % (45.0-75.0); PLATELET ESTIMATE NORMAL
[2025-03-20 21:40] VITALS: PULSE 96; RESP 20; O2SAT 98
[2025-03-20] MEDS: IPRATROPIUM/ALBUTEROL 0.5-3(2.5)MG/3ML NEB ONE (21:45)
[2025-03-20] MEDS: IPRATROPIUM/ALBUTEROL 0.5-3(2.5)MG/3ML NEB HHN ONE (21:45)
[2025-03-20 22:20] VITALS: BP 133/77; PULSE 100; RESP 22; TEMP 36.8; O2SAT 100
[2025-03-20 22:41] VITALS: BP 133/77; PULSE 100; RESP 22; TEMP 36.8072
[2025-03-20] MEDS ORDERED: IOHEXOL-350 100 ML BOTTLE ONE ×2 (23:10→23:11)
[2025-03-21] VITALS (7 sets, daily range): BP systolic 124–141; BP diastolic 69–75; PULSE 86–94; RESP 18–21; TEMP 36.4–37.2; O2SAT 98–100
[2025-03-21] MEDS ORDERED: CLONIDINE 0.1MG TABLET PO PRN (04:15)
[2025-03-21] MEDS: PANTOPRAZOLE SODIUM 40 MG/VIAL IV NR (04:39)
[2025-03-21] MEDS: IPRATROPIUM/ALBUTEROL 0.5-3(2.5)MG/3ML NEB HHN PRN (05:00)
[2025-03-21] MEDS: ENOXAPARIN 40MG/0.4ML SYR SUBCUT SCH (08:34)
[2025-03-21 12:23] LABS: HEMATOCRIT. 39.4 % (42.0-52.0); HEMOGLOBIN. 12.4 g/dL (14.0-18.0); MEAN PLATELET VOLUME 8.9 fl (7.4-10.4); PLATELET 204 x1000/uL (130-400); RED BLOOD CELL COUNT 4.65 mill/uL (4.7-6.1); RED CELL DISTRIBUTION WIDTH 19.3 % (11.6-14.6)
[2025-03-21 12:34] LABS: CREATININE 1.4 mg/dL (0.6-1.3); UREA NITROGEN BLOOD 8 mg/dL (9-23)
[2025-03-21 12:36] LABS: ASPARTATE AMINOTRANSFERASE 18 IU/L (<34); BILIRUBIN TOTAL 0.8 mg/dL (0.1-1.0); PROTEIN TOTAL 6.7 g/dL (6.0-8.3)
[2025-03-21 12:41] LABS: TROPONIN I HIGH SENSITIVITY 10 ng/L (3.0-53)
[2025-03-21 19:26] LABS: LYMPHOCYTES % MANUAL 5.0 % (20.0-50.0); MONOCYTES % MANUAL 8.0 % (2.0-8.0); NEUTROPHILS % MANUAL 87.0 % (45.0-75.0); PLATELET ESTIMATE NORMAL
[2025-03-21] MEDS ORDERED: DEXTROSE 50% WATER 50ML SYRINGE IV PRN (20:30)
[2025-03-21] MEDS: BLOOD SUGAR DIAGNOSTIC STRIP TEST SCH (21:00)
[2025-03-21] MEDS ORDERED: [UNRECOGNIZED DRUG - OTHER] PO SCH (21:00)
[2025-03-21] MEDS ORDERED: TAMSULOSIN HCL PO SCH (21:00)
[2025-03-21] MEDS ORDERED: DUTASTERIDE PO SCH (21:00)
[2025-03-21] MEDS: CILOSTAZOL 100MG TABLET PO SCH (21:00)
[2025-03-21] MEDS: INSULIN LISPRO 100 UNITS/ML SUBCUT SCH (21:00)
[2025-03-21] MEDS: TAMSULOSIN HCL 0.4MG SR CAPSULE PO SCH (22:35)
[2025-03-21] MEDS: METHYLPREDNISOLONE SOD SUCC 40MG/ML (ACT-O-VIAL) IV SCH (22:35)
[2025-03-21] MEDS: DUTASTERIDE 0.5MG CAPSULE PO SCH (22:36)
[2025-03-21] MEDS: ATORVASTATIN CALCIUM 40MG TABLET PO SCH (22:38)
[2025-03-22] VITALS (11 sets, daily range): BP systolic 122–143; BP diastolic 57–86; PULSE 70–92; RESP 15–20; TEMP 35.9–37.1; O2SAT 95–100
[2025-03-22] MEDS: IPRATROPIUM/ALBUTEROL 0.5-3(2.5)MG/3ML NEB HHN SCH (00:24)
[2025-03-22] MEDS: APIXABAN 2.5 MG TABLET PO SCH (01:00)
[2025-03-22] MEDS ORDERED: APIXABAN 2.5 MG TABLET PO SCH (09:00)
[2025-03-22] MEDS: AMLODIPINE 10MG TABLET PO SCH (09:44)
[2025-03-22] MEDS: CEFTRIAXONE 1GM/50ML 50 ML IV NR (13:48)
[2025-03-22 16:00] LABS: HEMATOCRIT. 39.5 % (42.0-52.0); HEMOGLOBIN. 12.6 g/dL (14.0-18.0); MEAN PLATELET VOLUME 8.8 fl (7.4-10.4); PLATELET 176 x1000/uL (130-400); RED BLOOD CELL COUNT 4.69 mill/uL (4.7-6.1); RED CELL DISTRIBUTION WIDTH 18.6 % (11.6-14.6)
[2025-03-22 16:15] LABS: CREATININE 1.3 mg/dL (0.6-1.3); UREA NITROGEN BLOOD 13 mg/dL (9-23)
[2025-03-22 16:56] LABS: LYMPHOCYTES % MANUAL 1.0 % (20.0-50.0); MONOCYTES % MANUAL 5.0 % (2.0-8.0); NEUTROPHILS % MANUAL 94.0 % (45.0-75.0); PLATELET ESTIMATE NORMAL
[2025-03-22] MEDS: ACETYLCYSTEINE 200MG/ML 20% VIAL 4ML INH SCH (17:39)
[2025-03-22] MEDS ORDERED: LEVOFLOXACIN 250MG PREMIX 50 ML IV SCH (19:00)
[2025-03-22] MEDS: LEVOFLOXACIN 750MG PREMIX 150 ML IV SCH (21:38)
[2025-03-22] MEDS: TRAZODONE HCL 50MG TABLET PO SCH (22:00)
[2025-03-23] VITALS (10 sets, daily range): BP systolic 118–131; BP diastolic 60–76; PULSE 58–105; RESP 16–20; TEMP 36.7–37.6; O2SAT 94–100
[2025-03-24] VITALS (7 sets, daily range): BP systolic 100–129; BP diastolic 61–69; PULSE 52–116; RESP 14–22; TEMP 36.4–36.8; O2SAT 95–100
[2025-03-24] MEDS ORDERED: P20 MT (10:41)
[2025-03-24] MEDS ORDERED: ALBU18HF2 IH (10:41)
== END 2025-03-24 16:34 | disposition home or self-care (01) | DRG 191 ==
LOC: ER 17:48 → EDBEDREQTM 20:42 → EDBEDREQ 20:42 → ENRESERV 21:03 → 7WST 22:08
PROVIDERS: ADMIT Internal Medicine; ATTEND Internal Medicine
DX: J44.1 Chronic obstructive pulmonary disease with (acute) exacerbation (principal); I87.1 Compression of vein; E11.9 Type 2 diabetes mellitus without complications; E78.5 Hyperlipidemia, unspecified; D64.9 Anemia, unspecified; F03.90 Unspecified dementia, unspecified severity, without behavioral disturbance, psychotic disturbance, mood disturbance, and anxiety; I10 Essential (primary) hypertension; N40.0 Benign prostatic hyperplasia without lower urinary tract symptoms; Z86.73 Personal history of transient ischemic attack (TIA), and cerebral infarction without residual deficits; Z95.0 Presence of cardiac pacemaker; Z79.899 Other long term (current) drug therapy
CPT/HCPCS: 36415; 71045; 71275; 80048; 80053; 80076; 82962; 83036; 83735; 83880; 84484; 85025; 85379; 86850; 86900; 93005; 94070; 94640; 94664; 99291; A4606; J0696; J1650; J1815; J1956; J2470; J2919; J7608; Q9967